=== PATIENT | male | born 1970 | race Caucasian/White ===

== ENCOUNTER 2022-09-07 21:36 | Emergency (ER) | payer SELFPAY ==
--- NOTE | 2022-09-08 01:43 | ED ---
Psych HPI - General Chief Complaint: Psychiatric Symptoms Stated Complaint: Petition Time Seen by Provider: 09/07/22 21:51 Source: police Mode of arrival: ambulatory - History of Present Illness Initial Comments: 52-year-old male presents to the emergency department on a pickup order. Police are at bedside. They state that the patient was petitioned by his father. Reading through the reports, the patient's father reports that he has had psychiatric illness for several years. He used to be on medications however stopped taking them all. They state that he doesn't believe in medications and that "God would heal all". They state that he has abnormal behavior such as co llecting urine in jars. He was kicked out of his detention. He has been living in a hotel which his father's funding. Due to his very poor insight, he was picked up for psychiatric evaluation. He denies any suicidal or homicidal ideations. He denies any drug or alcohol use. No other alleviating, precipitating or modifying factors - Related Data Home Medications Medication Instructions Recorded Confirmed No Known Home Medications 09/08/22 09/08/22 Allergies Allergy/AdvReac Type Severity Reaction Status Date / Time Penicillins Allergy Unknown Verified 09/08/22 12:54 Childhood Review of Systems ROS Statement: Those systems with pertinent positive or pertinent negative responses have been documented in the HPI. ROS Other: All systems not noted in ROS Statement are negative. Past Medical History Past Medical History: No Reported History History of Any Multi-Drug Resistant Organisms: None Reported Past Surgical History: No Surgical Hx Reported Past Psychological History: No Psychological Hx Reported Smoking Status: Never smoker Past Alcohol Use History: None Reported Past Drug Use History: None Reported General Exam Limitations: altered mental status General appearance: alert, anxious Head exam: Present: atraumatic, normocephalic, normal inspection Eye exam: Present: normal appearance, PERRL, EOMI. Absent: scleral icterus, conjunctival injection, periorbital swelling ENT exam: Present: normal exam, mucous membranes moist Neck exam: Present: normal inspection. Absent: tenderness, meningismus, lymphadenopathy Respiratory exam: Present: normal lung sounds bilaterally. Absent: respiratory distress, wheezes, rales, rhonchi, stridor Cardiovascular Exam: Present: normal rhythm, tachycardia, normal heart sounds. Absent: systolic murmur, diastolic murmur, rubs, gallop, clicks GI/Abdominal exam: Present: soft, normal bowel sounds. Absent: distended, tenderness, guarding, rebound, rigid Extremities exam: Present: normal inspection, full ROM, normal capillary refill. Absent: tenderness, pedal edema, joint swelling, calf tenderness Back exam: Present: normal inspection Neurological exam: Present: alert, CN II-XII intact Psychiatric exam: Present: agitated, anxious Skin exam: Present: warm, dry, intact, normal color. Absent: rash Course Vital Signs 09/07/22 09/08/22 09/08/22 21:46 15:47 16:37 Temperature 98 F 98.0 F Pulse Rate 117 H 116 H 109 H Respiratory 20 20 16 Rate Blood Pressure 161/82 113/73 115/67 O2 Sat by Pulse 96 97 98 Oximetry Medical Decision Making - Medical Decision Making Upon arrival patient was placed into room 2. A thorough history and physical exam was performed. Patient is sober at this time. EPS evaluated him. He does require psychiatric admission. Laboratory studies are obtained patient and is currently pending transfer at this time - Lab Data Result diagrams: 09/08/22 02:06 09/08/22 02:06 Lab Results 09/07/22 09/08/22 09/08/22 Range/Units 15:29 02:06 02:06 WBC 13.3 H (3.8-10.6) k/uL RBC 4.62 (4.30-5.90) m/uL Hgb 14.0 (13.0-17.5) gm/dL Hct 40.9 (39.0-53.0) % MCV 88.6 (80.0-100.0) fL MCH 30.3 (25.0-35.0) pg MCHC 34.2 (31.0-37.0) g/dL RDW 12.0 (11.5-15.5) % Plt Count 306 (150-450) k/uL MPV 8.0 Neutrophils % 75 % Lymphocytes % 14 % Monocytes % 5 % Eosinophils % 3 % Basophils % 1 % Neutrophils # 10.0 H (1.3-7.7) k/uL Lymphocytes # 1.8 (1.0-4.8) k/uL Monocytes # 0.7 (0-1.0) k/uL Eosinophils # 0.4 (0-0.7) k/uL Basophils # 0.1 (0-0.2) k/uL Sodium 137 (137-145) mmol/L Potassium 3.9 (3.5-5.1) mmol/L Chloride 104 (98-107) mmol/L Carbon Dioxide 22 (22-30) mmol/L Anion Gap 11 mmol/L BUN 10 (9-20) mg/dL Creatinine 0.81 (0.66-1.25) mg/dL Est GFR (CKD-EPI)AfAm >90 (>60 ml/min/1.73 sqM) Est GFR (CKD-EPI)NonAf >90 (>60 ml/min/1.73 sqM) Glucose 144 H (74-99) mg/dL Calcium 8.3 L (8.4-10.2) mg/dL Total Bilirubin 0.4 (0.2-1.3) mg/dL AST 31 (17-59) U/L ALT 42 (4-49) U/L Alkaline Phosphatase 165 H (38-126) U/L Total Protein 6.8 (6.3-8.2) g/dL Albumin 3.8 (3.5-5.0) g/dL Urine Color Urine Appearance (Clear) Urine pH (5.0-8.0) Ur Specific [place] (1.001-1.035) Urine Protein (Negative) Urine Glucose (UA) (Negative) Urine Ketones (Negative) Urine Blood (Negative) Urine Nitrite (Negative) Urine Bilirubin (Negative) Urine Urobilinogen (<2.0) mg/dL Ur Leukocyte Esterase (Negative) Urine Opiates Screen Not Detected (NotDetected) Ur Oxycodone Screen Not Detected (NotDetected) Urine Methadone Screen Not Detected (NotDetected) Ur Propoxyphene Screen Not Detected (NotDetected) Ur Barbiturates Screen Not Detected (NotDetected) U Tricyclic Antidepress Not Detected (NotDetected) Ur Phencyclidine Scrn Not Detected (NotDetected) Ur Amphetamines Screen Not Detected (NotDetected) U Methamphetamines Scrn Not Detected (NotDetected) U Benzodiazepines Scrn Not Detected (NotDetected) Urine Cocaine Screen Not Detected (NotDetected) U Marijuana (THC) Screen Not Detected (NotDetected) Coronavirus (PCR) (Not Detectd) 09/08/22 09/08/22 Range/Units 02:06 15:29 WBC (3.8-10.6) k/uL RBC (4.30-5.90) m/uL Hgb (13.0-17.5) gm/dL Hct (39.0-53.0) % MCV (80.0-100.0) fL MCH (25.0-35.0) pg MCHC (31.0-37.0) g/dL RDW (11.5-15.5) % Plt Count (150-450) k/uL MPV Neutrophils % % Lymphocytes % % Monocytes % % Eosinophils % % Basophils % % Neutrophils # (1.3-7.7) k/uL Lymphocytes # (1.0-4.8) k/uL Monocytes # (0-1.0) k/uL Eosinophils # (0-0.7) k/uL Basophils # (0-0.2) k/uL Sodium (137-145) mmol/L Potassium (3.5-5.1) mmol/L Chloride (98-107) mmol/L Carbon Dioxide (22-30) mmol/L Anion Gap mmol/L BUN (9-20) mg/dL Creatinine (0.66-1.25) mg/dL Est GFR (CKD-EPI)AfAm (>60 ml/min/1.73 sqM) Est GFR (CKD-EPI)NonAf (>60 ml/min/1.73 sqM) Glucose (74-99) mg/dL Calcium (8.4-10.2) mg/dL Total Bilirubin (0.2-1.3) mg/dL AST (17-59) U/L ALT (4-49) U/L Alkaline Phosphatase (38-126) U/L Total Protein (6.3-8.2) g/dL Albumin (3.5-5.0) g/dL Urine Color Light Yellow Urine Appearance Clear (Clear) Urine pH 7.0 (5.0-8.0) Ur Specific [place] 1.008 (1.001-1.035) Urine Protein Negative (Negative) Urine Glucose (UA) Negative (Negative) Urine Ketones Negative (Negative) Urine Blood Negative (Negative) Urine Nitrite Negative (Negative) Urine Bilirubin Negative (Negative) Urine Urobilinogen <2.0 (<2.0) mg/dL Ur Leukocyte Esterase Negative (Negative) Urine Opiates Screen (NotDetected) Ur Oxycodone Screen (NotDetected) Urine Methadone Screen (NotDetected) Ur Propoxyphene Screen (NotDetected) Ur Barbiturates Screen (NotDetected) U Tricyclic Antidepress (NotDetected) Ur Phencyclidine Scrn (NotDetected) Ur Amphetamines Screen (NotDetected) U Methamphetamines Scrn (NotDetected) U Benzodiazepines Scrn (NotDetected) Urine Cocaine Screen (NotDetected) U Marijuana (THC) Screen (NotDetected) Coronavirus (PCR) Not Detected (Not Detectd) Disposition Clinical Impression: Acute psychosis Disposition: TRANSFER TO PSYCH HOSP/UNIT Condition: Stable Is patient prescribed a controlled substance at d/c from ED?: No Referrals: None,Stated [Primary Care Provider] - 1-2 days - Out of Hospital Transfer - Req. Specs Out of Hospital Transfer - Requested Specifics: Psychiatric Non-ICU ([facility]
[2022-09-08 02:25] LABS: Basophils # (A) 0.1 k/uL (0-0.2); Basophils % (A) 1 %; Eosinophils # (A) 0.4 k/uL (0-0.7); Eosinophils % (A) 3 %; HCT 40.9 % (39.0-53.0); Lymphocytes # (A) 1.8 k/uL (1.0-4.8); Lymphocytes % (A) 14 %; MCH 30.3 pg (25.0-35.0); MCHC 34.2 g/dL (31.0-37.0); MCV 88.6 fL (80.0-100.0); Monocytes # (A) 0.7 k/uL (0-1.0); Monocytes % (A) 5 %; Neutrophils % (A) 75 %; Platelet Count 306 k/uL (150-450); RBC 4.62 m/uL (4.30-5.90); WBC 13.3 k/uL (3.8-10.6)
[2022-09-08 02:37] LABS: ALT 42 U/L (4-49); AST 31 U/L (17-59); African American GFR (CKD) >90 (>60 ml/min/1.73 sqM); Albumin 3.8 g/dL (3.5-5.0); Alkaline Phosphatase 165 U/L (38-126); Anion Gap 11 mmol/L; Blood Urea Nitrogen 10 mg/dL (9-20); Calcium 8.3 mg/dL (8.4-10.2); Carbon Dioxide 22 mmol/L (22-30); Chloride 104 mmol/L (98-107); Glucose 144 mg/dL (74-99); Non-African American GFR(CKD) >90 (>60 ml/min/1.73 sqM); Potassium 3.9 mmol/L (3.5-5.1); Sodium 137 mmol/L (137-145); Total Bilirubin 0.4 mg/dL (0.2-1.3); Total Protein 6.8 g/dL (6.3-8.2)
[2022-09-08] MEDS ORDERED: LORazepam 2 MG/ML INJ IM STA (15:22)
[2022-09-08] MEDS ORDERED: HALOPERIDOL LACTATE 5 MG/ML 1 ML VIAL IM STA (15:22)
[2022-09-08 15:41] LABS: Appearance,Urine Clear (Clear); Bilirubin,Urine Negative (Negative); Blood,Urine Negative (Negative); Color,Urine Light Yellow; Glucose,Urine (UA) Negative (Negative); Ketones,Urine Negative (Negative); Leukocyte Esterase,Urine Negative (Negative); Nitrite,Urine Negative (Negative); Protein,Urine Negative (Negative); Specific Gravity,Urine 1.008 (1.001-1.035); Urobilinogen,Urine <2.0 mg/dL (<2.0)
[2022-09-08 16:02] LABS: Amphetamine Screen,Urine Not Detected (NotDetected); Barbiturate Screen,Urine Not Detected (NotDetected); Benzodiazepines Screen,Urine Not Detected (NotDetected); Cocaine Screen,Urine Not Detected (NotDetected); Methadone Screen, Urine Not Detected (NotDetected); Opiate Screen,Urine Not Detected (NotDetected); Oxycodone Screen, Urine Not Detected (NotDetected); Phencyclidine Screen,Urine Not Detected (NotDetected); Tricyclic Antidepressant,Urine Not Detected (NotDetected); Urn Cannabinoid Scrn Not Detected (NotDetected)
[2022-09-08 16:39] VITALS: BP 115/67; PULSE 109; RESP 16; TEMP 98
== END 2022-09-08 16:52 ==
LOC: EC 21:36
DX: F29 Unspecified psychosis not due to a substance or known physiological condition (principal); Z88.0 Allergy status to penicillin
CPT/HCPCS: 82075; 36415; 80053; 85025; 81003; 80306; 87635; 99285; 96372 ×2; J2060; J1630

== ENCOUNTER 2023-05-21 14:44 | Emergency (ER) | payer MEDICARE, OTHER ==
[2023-05-21 15:03] VITALS: TEMP 98.9
[2023-05-21 15:53] LABS: Basophils % (A) 0 %; Eosinophils # (A) 0.1 k/uL (0-0.7); Eosinophils % (A) 1 %; HCT 42.2 % (39.0-53.0); HGB 14.4 gm/dL (13.0-17.5); Lymphocytes # (A) 1.4 k/uL (1.0-4.8); Lymphocytes % (A) 17 %; MCH 30.1 pg (25.0-35.0); MCHC 34.2 g/dL (31.0-37.0); MCV 88.2 fL (80.0-100.0); Mean Platelet Volume 7.8; Monocytes # (A) 0.5 k/uL (0-1.0); Monocytes % (A) 6 %; Neutrophils # (A) 5.9 k/uL (1.3-7.7); Neutrophils % (A) 73 %; Platelet Count 209 k/uL (150-450); RBC 4.78 m/uL (4.30-5.90); RDW 12.2 % (11.5-15.5); WBC 8.2 k/uL (3.8-10.6)
[2023-05-21 15:59] LABS: ALT 38 U/L (4-49); AST 31 U/L (17-59); African American GFR (CKD) >90 (>60 ml/min/1.73 sqM); Albumin 4.1 g/dL (3.5-5.0); Alkaline Phosphatase 106 U/L (38-126); Amylase 62 U/L (30-110); Anion Gap 14 mmol/L; Blood Urea Nitrogen 6 mg/dL (9-20); Calcium 8.9 mg/dL (8.4-10.2); Carbon Dioxide 20 mmol/L (22-30); Chloride 101 mmol/L (98-107); Glucose 127 mg/dL (74-99); Lipase 49 U/L (23-300); Non-African American GFR(CKD) >90 (>60 ml/min/1.73 sqM); Potassium 3.9 mmol/L (3.5-5.1); Sodium 135 mmol/L (137-145); Total Bilirubin 0.3 mg/dL (0.2-1.3); Total Protein 7.1 g/dL (6.3-8.2)
[2023-05-21] MEDS ORDERED: PANTOPRAZOLE 40 MG/10 ML VIAL IVP STA (17:30)
[2023-05-21] MEDS ORDERED: SODIUM CHLORIDE 0.9% 1,000 ML IV ONE (17:30)
[2023-05-21 17:38] LABS: Appearance,Urine Clear (Clear); Bilirubin,Urine Negative (Negative); Blood,Urine Negative (Negative); Glucose,Urine (UA) Negative (Negative); Ketones,Urine Negative (Negative); Leukocyte Esterase,Urine Negative (Negative); Nitrite,Urine Negative (Negative); PH, Urine 7.5 (5.0-8.0); Protein,Urine Negative (Negative); Specific Gravity,Urine 1.003 (1.001-1.035); Urobilinogen,Urine <2.0 mg/dL (<2.0)
[2023-05-21 17:47] LABS: Color,Urine Light Yellow
--- NOTE | 2023-05-21 17:56 | ED ---
General Adult HPI - General Chief complaint: Nausea/Vomiting/Diarrhea Stated complaint: vomiting Time Seen by Provider: 05/21/23 16:53 Source: patient, RN notes reviewed Mode of arrival: ambulatory Limitations: no limitations - History of Present Illness Initial comments: 53-year-old male presents emergency Department with chief complaint of vomiting 4 weeks. He states that he is unaware of any triggers. He reports that he is having normal bowel movements daily although he admits to occasional diarrhea. Denies aggravating or alleviating factors. He denies any fever, chills. Denies any abdominal pain. Denies tobacco use, alcohol, illicit drug use. He does not currently have a primary care provider. - Related Data Home Medications Medication Instructions Recorded Confirmed No Known Home Medications 09/08/22 09/08/22 Allergies Allergy/AdvReac Type Severity Reaction Status Date / Time Penicillins Allergy Unknown Verified 05/21/23 15:03 Childhood Review of Systems ROS Statement: Those systems with pertinent positive or pertinent negative responses have been documented in the HPI. ROS Other: All systems not noted in ROS Statement are negative. Past Medical History Past Medical History: No Reported History History of Any Multi-Drug Resistant Organisms: None Reported Past Surgical History: No Surgical Hx Reported Past Psychological History: No Psychological Hx Reported Smoking Status: Never smoker Past Alcohol Use History: None Reported Past Drug Use History: None Reported General Exam Limitations: no limitations General appearance: alert, in no apparent distress Head exam: Present: atraumatic, normocephalic, normal inspection Eye exam: Present: normal appearance, PERRL, EOMI. Absent: scleral icterus, conjunctival injection, periorbital swelling ENT exam: Present: normal exam, mucous membranes moist Neck exam: Present: normal inspection. Absent: tenderness, meningismus, lymphadenopathy Respiratory exam: Present: normal lung sounds bilaterally. Absent: respiratory distress, wheezes, rales, rhonchi, stridor Cardiovascular Exam: Present: regular rate, normal rhythm, normal heart sounds. Absent: systolic murmur, diastolic murmur, rubs, gallop, clicks GI/Abdominal exam: Present: soft, normal bowel sounds. Absent: distended, tenderness, guarding, rebound, rigid Extremities exam: Present: normal inspection, full ROM, normal capillary refill. Absent: tenderness, pedal edema, joint swelling, calf tenderness Back exam: Present: normal inspection Neurological exam: Present: alert, oriented X3 Psychiatric exam: Present: normal affect, normal mood Skin exam: Present: warm, dry, intact, normal color. Absent: rash Course Vital Signs 05/21/23 05/21/23 14:59 19:25 Temperature 98.9 F Pulse Rate 93 86 Respiratory 20 16 Rate Blood Pressure 144/81 120/78 O2 Sat by Pulse 95 97 Oximetry Medical Decision Making - Medical Decision Making Was pt. sent in by a medical professional or institution (, [facility], [facility], urgent care, hospital, or group home...) When possible be specific @ -No Did you speak to anyone other than the patient for history (EMS, parent, family, police, friend...)? What history was obtained from this source @ -No Did you review nursing and triage notes (agree or disagree)? Why? @ -I reviewed and agree with nursing and triage notes Were old charts reviewed (outside hosp., previous admission, EMS record, old EKG, old radiological studies, urgent care reports/EKG's, group home records)? Report findings @ -No old charts were reviewed Differential Diagnosis (chest pain, altered mental status, abdominal pain women, abdominal pain men, vaginal bleeding, weakness, fever, dyspnea, syncope, headach e, dizziness, GI bleed, back pain, seizure, CVA, palpatations, mental health, musculoskeletal)? @ -Gastroenteritis, gastritis, ulcer, this list is not all inclusive EKG interpreted by me (3pts min.). @ -none X-rays interpreted by me (1pt min.). @ -None done CT interpreted by me (1pt min.). @ -None done U/S interpreted by me (1pt. min.). @ -None done What testing was considered but not performed or refused? (CT, X-rays, U/S, labs)? Why? @ -None What meds were considered but not given or refused? Why? @ -None Did you discuss the management of the patient with other professionals (professionals i.e. [facility], [facility], lab, RT, psych nurse, social research assistant, roll machine operator, teacher, chief school finance officer, cyanide case hardener)? Give summary @ -No Was smoking cessation discussed for >3mins.? @ -No Was critical care preformed (if so, how long)? @ -No Were there social determinants of health that impacted care today? How? (Homelessness, low income, unemployed, alcoholism, drug addiction, transportation, low edu. Level, literacy, decrease access to med. care, nursing home, rehab)? @ -No Was there de-escalation of care discussed even if they declined (Discuss DNR or withdrawal of care, Hospice)? DNR status @ -No What co-morbidities impacted this encounter? (DM, HTN, Smoking, COPD, CAD, Cancer, CVA, ARF, Chemo, Hep., AIDS, mental health diagnosis, sleep apnea, morbid obesity)? @ -None Was patient admitted / discharged? Hospital course, mention meds given and route, prescriptions, significant lab abnormalities, going to OR and other pertinent info. @ -discharged. Patient presented to the department with chief complaint of nausea and vomiting 4 weeks. He admits to normal daily bowel movements and occasional diarrhea. He states that he does not currently have a primary care provider. He has a history of psychiatric illness but no other medical problems that he is aware of. Patient was given IV fluids and Protonix. He did not have any episodes of vomiting while in the emergency department. He is not having any abdominal pain. On examination abdomen is soft, nontender, nondistended. CBC within normal limits, CMP showed sodium 135, potassium 3.9, normal amylase and lipase; UA shows no evidence of urinary tract infection or dehydration Patient was given Zofran for home nausea and vomiting. Patient advised of these findings and given a list of area primary care providers to follow up with. Patient stable at time of discharge. Case discussed with my attending, Dr. Ca Undiagnosed new problem with uncertain prognosis? @ -No Drug Therapy requiring intensive monitoring for toxicity (Heparin, Nitro, Insulin, Cardizem)? @ -No Were any procedures done? @ -No Diagnosis/symptom? @ -Nausea and vomiting Acute, or Chronic, or Acute on Chronic? @ -Acute Uncomplicated (without systemic symptoms) or Complicated (systemic symptoms)? @ -Uncomplicated Side effects of treatment? @ -No Exacerbation, Progression, or Severe Exacerbation? @ -No Poses a threat to life or bodily function? How? (Chest pain, USA, PA, pneumonia, PE, COPD, DKA, ARF, appy, cholecystitis, CVA, Diverticulitis, Homicidal, Suicidal, threat to staff... and all critical care pts) @ -No - Lab Data Result diagrams: 05/21/23 15:30 05/21/23 15:30 Lab Results 05/21/23 05/21/23 05/21/23 Range/Units 15:30 15:30 17:17 WBC 8.2 (3.8-10.6) k/uL RBC 4.78 (4.30-5.90) m/uL Hgb 14.4 (13.0-17.5) gm/dL Hct 42.2 (39.0-53.0) % MCV 88.2 (80.0-100.0) fL MCH 30.1 (25.0-35.0) pg MCHC 34.2 (31.0-37.0) g/dL RDW 12.2 (11.5-15.5) % Plt Count 209 (150-450) k/uL MPV 7.8 Neutrophils % 73 % Lymphocytes % 17 % Monocytes % 6 % Eosinophils % 1 % Basophils % 0 % Neutrophils # 5.9 (1.3-7.7) k/uL Lymphocytes # 1.4 (1.0-4.8) k/uL Monocytes # 0.5 (0-1.0) k/uL Eosinophils # 0.1 (0-0.7) k/uL Basophils # 0.0 (0-0.2) k/uL Sodium 135 L (137-145) mmol/L Potassium 3.9 (3.5-5.1) mmol/L Chloride 101 (98-107) mmol/L Carbon Dioxide 20 L (22-30) mmol/L Anion Gap 14 mmol/L BUN 6 L (9-20) mg/dL Creatinine 0.75 (0.66-1.25) mg/dL Est GFR (CKD-EPI)AfAm >90 (>60 ml/min/1.73 sqM) Est GFR (CKD-EPI)NonAf >90 (>60 ml/min/1.73 sqM) Glucose 127 H (74-99) mg/dL Calcium 8.9 (8.4-10.2) mg/dL Total Bilirubin 0.3 (0.2-1.3) mg/dL AST 31 (17-59) U/L ALT 38 (4-49) U/L Alkaline Phosphatase 106 (38-126) U/L Total Protein 7.1 (6.3-8.2) g/dL Albumin 4.1 (3.5-5.0) g/dL Amylase 62 (30-110) U/L Lipase 49 (23-300) U/L Urine Color Light Yellow Urine Appearance Clear (Clear) Urine pH 7.5 (5.0-8.0) Ur Specific [place] 1.003 (1.001-1.035) Urine Protein Negative (Negative) Urine Glucose (UA) Negative (Negative) Urine Ketones Negative (Negative) Urine Blood Negative (Negative) Urine Nitrite Negative (Negative) Urine Bilirubin Negative (Negative) Urine Urobilinogen <2.0 (<2.0) mg/dL Ur Leukocyte Esterase Negative (Negative) Disposition Clinical Impression: Nausea and vomiting Disposition: HOME SELF-CARE Condition: Stable Instructions (If sedation given, give patient instructions): Acute Nausea and Vomiting (ED) Additional Instructions: Follow up with an area primary care provider. Return to the emergency department for new or worsening symptoms. Is patient prescribed a controlled substance at d/c from ED?: No Referrals: None,Stated [Primary Care Provider] - 1-2 days Forms: Area PCPs
[2023-05-21] MEDS ORDERED: ONDANSETRON 4 MG ODT STARTER PACK 2 TAB BTL PO STA (18:07)
[2023-05-21 19:26] VITALS: BP 120/78; PULSE 86; RESP 16
== END 2023-05-21 19:27 | disposition home or self-care (01) ==
LOC: EC 14:44
DX: R11.2 Nausea with vomiting, unspecified (principal); Z88.0 Allergy status to penicillin
CPT/HCPCS: 36415; 80053; 82150; 83690; 85025; 81003; 99284; 96374; 96361; S0119; C9113

== ENCOUNTER 2024-09-19 19:23 | Emergency (ER) | payer MEDICARE, OTHER ==
[2024-09-19 20:15] LABS: Basophils # (A) 0.1 k/uL (0-0.2); Basophils % (A) 0 %; Eosinophils # (A) 0.2 k/uL (0-0.7); Eosinophils % (A) 1 %; HCT 45.3 % (39.0-53.0); HGB 15.2 gm/dL (13.0-17.5); Lymphocytes # (A) 2.3 k/uL (1.0-4.8); Lymphocytes % (A) 18 %; MCH 29.8 pg (25.0-35.0); MCHC 33.6 g/dL (31.0-37.0); MCV 88.7 fL (80.0-100.0); Mean Platelet Volume 8.5; Monocytes # (A) 0.8 k/uL (0-1.0); Monocytes % (A) 6 %; Neutrophils % (A) 71 %; Platelet Count 303 k/uL (150-450); RDW 12.9 % (11.5-15.5); WBC 12.7 k/uL (3.8-10.6)
[2024-09-19 20:27] LABS: ALT 35 U/L (4-49); AST 34 U/L (17-59); African American GFR (CKD) >90 (>60 ml/min/1.73 sqM); Albumin 4.5 g/dL (3.5-5.0); Alkaline Phosphatase 150 U/L (38-126); Anion Gap 12 mmol/L; Blood Urea Nitrogen 14 mg/dL (9-20); Carbon Dioxide 16 mmol/L (22-30); Chloride 107 mmol/L (98-107); Glucose 122 mg/dL (74-99); Non-African American GFR(CKD) >90 (>60 ml/min/1.73 sqM); Potassium 3.9 mmol/L (3.5-5.1); Sodium 135 mmol/L (137-145); Total Protein 7.3 g/dL (6.3-8.2)
--- NOTE | 2024-09-19 20:39 | ED ---
General Adult HPI - General Source: patient, police, RN notes reviewed, old records reviewed Mode of arrival: ambulatory Limitations: no limitations <Sundar Benitez - Last Filed: 09/19/24 20:39> <Phoenix Ca - Last Filed: 09/20/24 02:12> - General Chief complaint: Psychiatric Symptoms Stated complaint: PETITION Time Seen by Provider: 09/19/24 19:30 - History of Present Illness Initial comments: Patient is a 54-year-old male who presents as a court order pickup from police. Patient was petitioned by his father. Petition states "grandiose delusionshe thinks his mother is even though he sees here. Believes he came into a large sum of money. He flip to other side." Patient denies any symptoms. Denies suicidal homicidal ideations, times complaints. Denies any hallucinations. Presents for further evaluation at this time. He is cooperative. (Sundar Benitez) - Related Data Home Medications Medication Instructions Recorded Confirmed No Known Home Medications 09/08/22 09/08/22 Allergies Allergy/AdvReac Type Severity Reaction Status Date / Time Penicillins Allergy Unknown Verified 09/19/24 19:28 Childhood Review of Systems ROS Other: All systems not noted in ROS Statement are negative. <Sundar Benitez - Last Filed: 09/19/24 20:39> ROS Other: All systems not noted in ROS Statement are negative. <Phoenix Ca - Last Filed: 09/20/24 02:12> ROS Statement: Those systems with pertinent positive or pertinent negative responses have been documented in the HPI. Review of Systems: CONST: Denies fever EYES: Denies blurry vision ENT: Denies nasal congestion C/V: Denies Chest pain RESP: Denies shortness of breath GI: Denies abdominal pain : Denies dysuria SKIN: Denies rash. MSK: Denies joint pain. NEURO: Denies headache (Sundar Benitez) Past Medical History Past Medical History: No Reported History History of Any Multi-Drug Resistant Organisms: None Reported Past Surgical History: No Surgical Hx Reported Past Psychological History: No Psychological Hx Reported Smoking Status: Never smoker Past Alcohol Use History: None Reported Past Drug Use History: None Reported <Sundar Benitez - Last Filed: 09/19/24 20:39> General Exam Limitations: no limitations <EmmanuelSundar - Last Filed: 09/19/24 20:39> - General Exam Comments Initial Comments: General: Appears in no acute distress. HEAD: Normal with no signs of head trauma. EYES: EOMI. ENT: Hearing grossly intact. RESPIRATORY: No respiratory distress. Clear breath sounds bilaterally. C/V: Regular rate and rhythm. S1 and S2 auscultated. ABD: Abdomen is nondistended. EXT: No obvious deformity. SKIN: No rashes or lesions observed on exposed skin. NEURO: Alert and oriented x 4 (Sundar Benitez) Course Vital Signs 09/19/24 19:26 Temperature 97.7 F Pulse Rate 58 L Respiratory 20 Rate Blood Pressure 137/76 O2 Sat by Pulse 96 Oximetry Medical Decision Making - Lab Data Result diagrams: 09/19/24 19:53 09/19/24 19:53 - EKG Data -: EKG Interpreted by Me <Sundar Benitez - Last Filed: 09/19/24 20:39> - Lab Data Result diagrams: 09/19/24 19:53 09/19/24 19:53 <Phoenix Ca - Last Filed: 09/20/24 02:12> - Medical Decision Making Was pt. sent in by a medical professional or institution (LISANDRA Camp, FIELD STAFF MANAGER, urgent care, hospital, or [facility]...) When possible be specific @ -Patient petitioned and brought in by police for court order pickup. Did you speak to anyone other than the patient for history (EMS, parent, family, police, friend...)? What history was obtained from this source @ -No Did you review nursing and triage notes (agree or disagree)? Why? @ -I reviewed and agree with nursing and triage notes Were old charts reviewed (outside hosp., previous admission, EMS record, old EKG, old radiological studies, urgent care reports/EKG's, [facility] records)? Report findings @ -Reviewed the petition completed by patient's father, outlining patient's delusions. Differential Diagnosis (chest pain, altered mental status, abdominal pain women, abdominal pain men, vaginal bleeding, weakness, fever, dyspnea, syncope, headache, dizziness, GI bleed, back pain, seizure, CVA, palpatations, mental health, musculoskeletal)? @ -Differential Mental Health Depression, anxiety, bipolar, psychosis, schizophrenia, borderline personality, situational depression, adjustment disorder, behavioral disorder, brain tumor, malingering, substance abuse, encephalopathy, medication reaction, dementia, hypothyroidism, degenerative neurologic disorder, lupus.... This is not meant to be all-inclusive list EKG interpreted by me (3pts min.). @ -As above X-rays interpreted by me (1pt min.). @ -None done CT interpreted by me (1pt min.). @ -None done U/S interpreted by me (1pt. min.). @ -None done What testing was considered but not performed or refused? (CT, X-rays, U/S, labs)? Why? @ -None What meds were considered but not given or refused? Why? @ -None Did you discuss the management of the patient with other professionals (professionals i.e. , PA, FIELD STAFF MANAGER, lab, RT, psych nurse, adoption social worker, mens locker room attendant, teacher, gunnery/ordnance officer, telehealth case manager)? Give summary @ -No Was smoking cessation discussed for >3mins.? @ -No Was critical care preformed (if so, how long)? @ -No Were there social determinants of health that impacted care today? How? (Homelessness, low income, unemployed, alcoholism, drug addiction, transportation, low edu. Level, literacy, decrease access to med. care, care home, rehab)? @ -No Was there de-escalation of care discussed even if they declined (Discuss DNR or withdrawal of care, Hospice)? DNR status @ -No What co-morbidities impacted this encounter? (DM, HTN, Smoking, COPD, CAD, Cancer, CVA, ARF, Chemo, Hep., AIDS, mental health diagnosis, sleep apnea, morbid obesity)? @ -Mental health history Was patient admitted / discharged? Hospital course, mention meds given and route, prescriptions, significant lab abnormalities, going to OR and other pertinent info. @ -Patient presents emergency department for psychiatric evaluation. Was petitioned and had a court order pickup. Sitter ordered. Patient is franki ative. Due to his age we will obtain basic labs as well as a screen EKG. He was in agreement this plan. BAT is 0. Laboratory studies are all within acceptable limits. EKG shows no signs of acute ischemia. At this time, patient is medically cleared for evaluation by psychiatry. Disposition is pending psychiatric evaluation. EPS notified of consult. Undiagnosed new problem with uncertain prognosis? @ -No Drug Therapy requiring intensive monitoring for toxicity (Heparin, Nitro, Insulin, Cardizem)? @ -No Were any procedures done? @ -No (Sundar Benitez) - Lab Data Lab Results 09/19/24 09/19/24 09/19/24 Range/Units 19:53 19:53 21:10 WBC 12.7 H (3.8-10.6) k/uL RBC 5.10 (4.30-5.90) m/uL Hgb 15.2 (13.0-17.5) gm/dL Hct 45.3 (39.0-53.0) % MCV 88.7 (80.0-100.0) fL MCH 29.8 (25.0-35.0) pg MCHC 33.6 (31.0-37.0) g/dL RDW 12.9 (11.5-15.5) % Plt Count 303 (150-450) k/uL MPV 8.5 Neutrophils % 71 % Lymphocytes % 18 % Monocytes % 6 % Eosinophils % 1 % Basophils % 0 % Neutrophils # 9.0 H (1.3-7.7) k/uL Lymphocytes # 2.3 (1.0-4.8) k/uL Monocytes # 0.8 (0-1.0) k/uL Eosinophils # 0.2 (0-0.7) k/uL Basophils # 0.1 (0-0.2) k/uL Sodium 135 L (137-145) mmol/L Potassium 3.9 (3.5-5.1) mmol/L Chloride 107 (98-107) mmol/L Carbon Dioxide 16 L (22-30) mmol/L Anion Gap 12 mmol/L BUN 14 (9-20) mg/dL Creatinine 0.81 (0.66-1.25) mg/dL Est GFR (CKD-EPI)AfAm >90 (>60 ml/min/1.73 sqM) Est GFR (CKD-EPI)NonAf >90 (>60 ml/min/1.73 sqM) Glucose 122 H (74-99) mg/dL Calcium 9.0 (8.4-10.2) mg/dL Total Bilirubin 1.0 (0.2-1.3) mg/dL AST 34 (17-59) U/L ALT 35 (4-49) U/L Alkaline Phosphatase 150 H (38-126) U/L Total Protein 7.3 (6.3-8.2) g/dL Albumin 4.5 (3.5-5.0) g/dL Urine Color Urine Appearance (Clear) Urine pH (5.0-8.0) Ur Specific [place] (1.001-1.035) Urine Protein (Negative) Urine Glucose (UA) (Negative) Urine Ketones (Negative) Urine Blood (Negative) Urine Nitrite (Negative) Urine Bilirubin (Negative) Urine Urobilinogen (<2.0) mg/dL Ur Leukocyte Esterase (Negative) Urine Opiates Screen Not Detected (NotDetected) Ur Oxycodone Screen Not Detected (NotDetected) Urine Methadone Screen Not Detected (NotDetected) Ur Barbiturates Screen Not Detected (NotDetected) U Tricyclic Antidepress Not Detected (NotDetected) Ur Phencyclidine Scrn Not Detected (NotDetected) Ur Amphetamines Screen Not Detected (NotDetected) U Methamphetamines Scrn Not Detected (NotDetected) U Benzodiazepines Scrn Not Detected (NotDetected) Urine Cocaine Screen Not Detected (NotDetected) U Marijuana (THC) Screen Not Detected (NotDetected) SARS-CoV-2 (PCR) (Not Detectd) 09/19/24 09/19/24 Range/Units 21:10 23:44 WBC (3.8-10.6) k/uL RBC (4.30-5.90) m/uL Hgb (13.0-17.5) gm/dL Hct (39.0-53.0) % MCV (80.0-100.0) fL MCH (25.0-35.0) pg MCHC (31.0-37.0) g/dL RDW (11.5-15.5) % Plt Count (150-450) k/uL MPV Neutrophils % % Lymphocytes % % Monocytes % % Eosinophils % % Basophils % % Neutrophils # (1.3-7.7) k/uL Lymphocytes # (1.0-4.8) k/uL Monocytes # (0-1.0) k/uL Eosinophils # (0-0.7) k/uL Basophils # (0-0.2) k/uL Sodium (137-145) mmol/L Potassium (3.5-5.1) mmol/L Chloride (98-107) mmol/L Carbon Dioxide (22-30) mmol/L Anion Gap mmol/L BUN (9-20) mg/dL Creatinine (0.66-1.25) mg/dL Est GFR (CKD-EPI)AfAm (>60 ml/min/1.73 sqM) Est GFR (CKD-EPI)NonAf (>60 ml/min/1.73 sqM) Glucose (74-99) mg/dL Calcium (8.4-10.2) mg/dL Total Bilirubin (0.2-1.3) mg/dL AST (17-59) U/L ALT (4-49) U/L Alkaline Phosphatase (38-126) U/L Total Protein (6.3-8.2) g/dL Albumin (3.5-5.0) g/dL Urine Color Light Yellow Urine Appearance Clear (Clear) Urine pH 6.5 (5.0-8.0) Ur Specific [place] 1.015 (1.001-1.035) Urine Protein Negative (Negative) Urine Glucose (UA) Negative (Negative) Urine Ketones 2+ H (Negative) Urine Blood Negative (Negative) Urine Nitrite Negative (Negative) Urine Bilirubin Negative (Negative) Urine Urobilinogen <2.0 (<2.0) mg/dL Ur Leukocyte Esterase Negative (Negative) Urine Opiates Screen (NotDetected) Ur Oxycodone Screen (NotDetected) Urine Methadone Screen (NotDetected) Ur Barbiturates Screen (NotDetected) U Tricyclic Antidepress (NotDetected) Ur Phencyclidine Scrn (NotDetected) Ur Amphetamines Screen (NotDetected) U Methamphetamines Scrn (NotDetected) U Benzodiazepines Scrn (NotDetected) Urine Cocaine Screen (NotDetected) U Marijuana (THC) Screen (NotDetected) SARS-CoV-2 (PCR) Not Detected (Not Detectd) - EKG Data EKG Comments: 12-lead Electrocardiogram Interpretation Note EKG was reviewed and interpreted by myself. 12-lead ECG performed at 2010 is interpreted by me as revealing normal sinus rhythm at a rate of 89 beats per min toyin. [place] is normal. LA interval is 128 ms, QRS duration is 94 ms, QTc is 403 ms.. There were no ST or T wave abnormalities to suggest myocardial ischemia or injury. R wave progression across the precordium was satisfactory. By my interpretation this EKG is non-diagnostic for acute ischemia. (Sundar Benitez) Disposition <Sundar Benitez - Last Filed: 09/19/24 20:39> Is patient prescribed a controlled substance at d/c from ED?: No <Phoenix Ca - Last Filed: 09/20/24 02:12> Clinical Impression: Acute psychosis, Psychosis Disposition: TRANSFER TO PSYCH HOSP/UNIT Condition: Fair Referrals: None,Stated [Primary Care Provider] - 1-2 days
[2024-09-19 21:49] LABS: Amphetamine Screen,Urine Not Detected (NotDetected); Barbiturate Screen,Urine Not Detected (NotDetected); Benzodiazepines Screen,Urine Not Detected (NotDetected); Cocaine Screen,Urine Not Detected (NotDetected); Methadone Screen, Urine Not Detected (NotDetected); Opiate Screen,Urine Not Detected (NotDetected); Oxycodone Screen, Urine Not Detected (NotDetected); Phencyclidine Screen,Urine Not Detected (NotDetected); Tricyclic Antidepressant,Urine Not Detected (NotDetected); Urn Cannabinoid Scrn Not Detected (NotDetected)
[2024-09-19 23:48] LABS: Appearance,Urine Clear (Clear); Bilirubin,Urine Negative (Negative); Blood,Urine Negative (Negative); Color,Urine Light Yellow; Glucose,Urine (UA) Negative (Negative); Ketones,Urine 2+ (Negative); Leukocyte Esterase,Urine Negative (Negative); Nitrite,Urine Negative (Negative); PH, Urine 6.5 (5.0-8.0); Protein,Urine Negative (Negative); Specific Gravity,Urine 1.015 (1.001-1.035); Urobilinogen,Urine <2.0 mg/dL (<2.0)
[2024-09-20 12:32] VITALS: BP 119/58; PULSE 65; RESP 16; TEMP 97.6
== END 2024-09-20 21:13 ==
LOC: EC 19:23
DX: F23 Brief psychotic disorder (principal); Z88.0 Allergy status to penicillin; Z11.52 Encounter for screening for COVID-19
CPT/HCPCS: 36415; 80053; 80306; 81003; 82075; 85025; 87635; 93005; 99285

== ENCOUNTER 2024-11-22 09:11 | Inpatient (IN) | payer MEDICARE, MEDICAID ==
--- NOTE | 2024-11-22 09:45 | ED ---
General Adult HPI - General Chief complaint: Psychiatric Symptoms Stated complaint: Petition Time Seen by Provider: 11/22/24 09:21 Source: patient, police Mode of arrival: ambulatory - History of Present Illness Initial comments: Dictation was produced using [employer] dictation software. please excuse any grammatical, word or spelling errors. Chief Complaint: 54-year-old male presents to the emergency department for psychiatric evaluation History of Present Illness: Patient is 54-year-old male brought to the emergency department for psychiatric evaluation. Blunt force was called on patient's behalf because he has not been trying to up to his psychiatric appointments. Patient denies any complaints at this time. Denies any suicidal homicidal ideation. He denies any visual auditory hallucinations. Patient denies any paranoia. The ROS documented in this emergency department record has been reviewed and confirmed by me. Those systems with pertinent positive or negative responses have been documented in the HPI. All other systems are other negative and/or noncontributory. - Related Data Home Medications Medication Instructions Recorded Confirmed No Known Home Medications 09/08/22 09/20/24 Allergies Allergy/AdvReac Type Severity Reaction Status Date / Time Penicillins Allergy Unknown Verified 11/22/24 09:19 Childhood Review of Systems ROS Statement: Those systems with pertinent positive or pertinent negative responses have been documented in the HPI. ROS Other: All systems not noted in ROS Statement are negative. Past Medical History Past Medical History: No Reported History History of Any Multi-Drug Resistant Organisms: None Reported Past Surgical History: Tonsillectomy Past Psychological History: No Psychological Hx Reported, Schizoaffective Disorder Smoking Status: Never smoker Past Alcohol Use History: None Reported Past Drug Use History: None Reported General Exam - General Exam Comments Initial Comments: General: Well-appearing, nontoxic, no acute distress. Head: Normocephalic, atraumatic Eyes: PERRLA, EOMI ENT: Airway patent Chest: Nonlabored breathing Skin: No visual rash, normal skin tone Neuro: Alert and oriented 3 Musculoskeletal: No gross abnormalities Course Vital Signs 11/22/24 11/22/24 11/22/24 09:13 09:19 11:19 Temperature 97.8 F Pulse Rate 126 H 118 H 95 Respiratory 28 H 20 24 Rate Blood Pressure 138/74 112/60 140/89 O2 Sat by Pulse 100 98 98 Oximetry Medical Decision Making - Medical Decision Making Was pt. sent in by a medical professional or institution (, PA, PHARMACY SALES ASSISTANT, urgent care, hospital, or [place] [facility]...) When possible be specific @ -No Did you speak to anyone other than the patient for history (EMS, parent, family, police, friend...)? What history was obtained from this source @ -No Did you review nursing and triage notes (agree or disagree)? Why? @ -I reviewed and agree with nursing and triage notes Were old charts reviewed (outside hosp., previous admission, EMS record, old EKG, old radiological studies, urgent care reports/EKG's, [place] [facility] records)? Report findings @ -No old charts were reviewed Differential Diagnosis (chest pain, altered mental status, abdominal pain women, abdominal pain men, vaginal bleeding, musculoskeletal, weakness, fever, dyspnea, syncope, headache, dizziness, GI bleed, back pain, seizure, CVA, palpatations, mental health)? @ -Differential Mental Health: Depression, anxiety, bipolar, psychosis, schizophrenia, borderline personality, situational depression, adjustment disorder, behavioral disorder, brain tumor, malingering, substance abuse, encephalopathy, medication reaction, dementia, hypothyroidism, degenerative neurologic disorder, lupus.... This is not meant to be all-inclusive list EKG interpreted by me (3pts min.). @ -None done X-rays interpreted by me (1pt min.). @ -None done CT interpreted by me (1pt min.). @ -None done U/S interpreted by me (1pt. min.). @ -None done What testing was considered but not performed or refused? (CT, X-rays, U/S, labs)? Why? @ -None What meds were considered but not given or refused? Why? @ -None Was smoking cessation discussed for >3mins.? @ -No Were there social determinants of health that impacted care today? How? (Homelessness, low income, unemployed, alcoholism, drug addiction, transportation, low edu. Level, literacy, decrease access to med. care, [facility], rehab)? @ -No Was there de-escalation of care discussed even if they declined (Discuss DNR or withdrawal of care, Hospice)? DNR status @ -No What co-morbidities impacted this encounter? (DM, HTN, Smoking, COPD, CAD, Cancer, CVA, ARF, Chemo, Hep., AIDS, mental health diagnosis, sleep apnea, morbid obesity)? @ -History of schizophrenia Was patient admitted / discharged? Hospital course, mention meds given and route, prescriptions, significant lab abnormalities, going to OR and other pertinent info. @ -54-year-old male presents emergency department for psychiatric evaluation due to noncompliance with psychiatric care. Vital signs stable. Physical examination is benign. Patient medically cleared for EPS evaluation Did you discuss the management of the patient with other professionals (professionals i.e. , PA, PHARMACY SALES ASSISTANT, lab, RT, psych nurse, psychiatric social worker supervisor, warehouse production worker, teacher, hazard mitigation officer, pillowcase turner)? Give summary @ -Patient admitted by EPS and I was notified that patient will be admitted to inpatient psych Was critical care preformed (if so, how long)? @ -No Undiagnosed new problem with uncertain prognosis? @ -No Drug Therapy requiring intensive monitoring for toxicity (Heparin, Nitro, Insulin, Cardizem)? @ -No Were any procedures done? @ -No Diagnosis/symptom? Acute, or Chronic, or Acute on Chronic? Uncomplicated (without systemic symptoms) or Complicated (systemic symptoms)? @ -Psychiatric evaluation Side effects of treatment? @ -No Exacerbation, Progression, or Severe Exacerbation? @ -No Poses a threat to life or bodily function? How? (Chest pain, [place], [place], pneumonia, PE, COPD, DKA, ARF, appy, cholecystitis, CVA, Diverticulitis, Homicidal, Suicidal, threat to staff... and all critical care pts) @ -yes - Lab Data Lab Results 11/22/24 11/22/24 Range/Units 09:25 12:51 Urine Opiates Screen Not Detected (NotDetected) Ur Oxycodone Screen Not Detected (NotDetected) Urine Methadone Screen Not Detected (NotDetected) Ur Barbiturates Screen Not Detected (NotDetected) U Tricyclic Antidepress Not Detected (NotDetected) Ur Phencyclidine Scrn Not Detected (NotDetected) Ur Amphetamines Screen Not Detected (NotDetected) U Methamphetamines Scrn Not Detected (NotDetected) U Benzodiazepines Scrn Not Detected (NotDetected) Urine Cocaine Screen Not Detected (NotDetected) U Marijuana (THC) Screen Not Detected (NotDetected) Influenza Type A (PCR) Not Detected (Not Detectd) Influenza Type B (PCR) Not Detected (Not Detectd) RSV (PCR) Not Detected (Not Detectd) SARS-CoV-2 (PCR) Not Detected (Not Detectd) Disposition Clinical Impression: Psychiatric complaint Disposition: TRANSFER TO PSYCH HOSP/UNIT
[2024-11-22 10:02] LABS: Amphetamine Screen,Urine Not Detected (NotDetected); Barbiturate Screen,Urine Not Detected (NotDetected); Benzodiazepines Screen,Urine Not Detected (NotDetected); Cocaine Screen,Urine Not Detected (NotDetected); Methadone Screen, Urine Not Detected (NotDetected); Opiate Screen,Urine Not Detected (NotDetected); Oxycodone Screen, Urine Not Detected (NotDetected); Phencyclidine Screen,Urine Not Detected (NotDetected); Tricyclic Antidepressant,Urine Not Detected (NotDetected); Urn Cannabinoid Scrn Not Detected (NotDetected)
[2024-11-22 13:41] LABS: Influenza A Not Detected (Not Detectd); Influenza B Not Detected (Not Detectd); RSV Not Detected (Not Detectd)
[2024-11-22] MEDS: ZIPRASIDONE 20 MG VIAL IM STA (14:16)
[2024-11-22 15:33] VITALS: BP 141/80; PULSE 118; RESP 16; TEMP 98.7
[2024-11-22] MEDS ORDERED: HALOPERIDOL LACTATE 5 MG/ML 1 ML VIAL IM PRN (16:07)
[2024-11-22] MEDS ORDERED: MAGNESIUM HYDROXIDE 2,400 MG/30 ML CUP PO PRN (16:07)
[2024-11-22] MEDS ORDERED: MAG HYDROX/AL HYDROX/SIMETH 355 ML BOTTLE PO PRN (16:07)
[2024-11-22] MEDS ORDERED: haloperidoL 5 MG TAB PO PRN (16:07)
[2024-11-22] MEDS ORDERED: LORazepam 1 MG TAB PO PRN (16:07)
[2024-11-22] MEDS ORDERED: IBUPROFEN 600 MG TAB PO PRN (16:07)
[2024-11-22] MEDS ORDERED: LORazepam 2 MG/ML INJ IM PRN (16:07)
[2024-11-22] MEDS ORDERED: ACETAMINOPHEN TAB 325 MG TAB PO PRN (16:07)
--- NOTE | 2024-11-22 20:54 | P.CONS ---
History of Present Illness - Reason for Consult Consult date: 11/22/24 - History of Present Illness This is a 54 year old male with medical history of shizoaffective disorder not currently on any medications on an outpatient basis. Patient was brought in by the police with reports of noncompliance to his home medications although none reported. Patient per medical record has longstanding history of psychiatric disorder and noncompliance with medications. Patient denies any active medical history and has no currently complaints. He does not elaborate when asked what brought him into the hospital. He is a patient of Dr. kenyetta Cobb. His EKG on admission reveals normal sinus rhythm with heart rate of 89. No specific ST or T wave changes. UDS is negative. Viral panel negative for influenza A/B, RSV, and Covid. He has been afebrile, heart rate 95, blood pressure 141/80. 98% on room air. Review of Systems Constitutional: Denied any fatigue denied any fever. Cardio vascular: denied any chest pain, palpitations Gastrointestinal: denied any nausea, vomiting, diarrhea Pulmonary: Denied any shortness of breath cough Neurologic denied any new focal deficits All inpatient medications were reviewed and appropriate changes in these medications as dictated in the interval history and assessment and plan. PHYSICAL EXAMINATION: GENERAL: The patient is alert and oriented x3, not in any acute distress. Well developed, well nourished. HEENT: Pupils are round and equally reacting to light. EOMI. No scleral icterus. No conjunctival pallor. Normocephalic, atraumatic. No pharyngeal erythema. No thyromegaly. CARDIOVASCULAR: S1 and S2 present. No murmurs, rubs, or gallops. PULMONARY: Chest is clear to auscultation, no wheezing or crackles. ABDOMEN: Soft, nontender, nondistended, normoactive bowel sounds. No palpable organomegaly. MUSCULOSKELETAL: No joint swelling or deformity. EXTREMITIES: No cyanosis, clubbing, or pedal edema. NEUROLOGICAL: Gross neurological examination did not reveal any focal deficits. SKIN: No rashes. Assessment and Plan Hx schizoaffective disorder with concern for noncompliance with outside medications Sinus tachycardia and hypertension can be from agitation will continue to monitor and make adjustments to medicaition if appropriate Thank you kindly for this consultation Plan Routine blood work pending Continue all medications per psychiatry Monitor heart rate and blood pressure. The impression and plan of care has been dictated by Mara Chaves Nurse Practitioner as directed. Dr. Hugo MD I have performed a history and physical examination and medical decision making of this patient, discussed the same with the dictator, and agree with the dictators assessment and plan as written, documented as a scribe. Based on total visit time, I have performed more than 50% of this visit. Past Medical History Past Medical History: No Reported History History of Any Multi-Drug Resistant Organisms: None Reported Past Surgical History: Tonsillectomy Past Psychological History: Schizoaffective Disorder Smoking Status: Never smoker Past Alcohol Use History: None Reported Past Drug Use History: None Reported Medications and Allergies Home Medications Medication Instructions Recorded Confirmed Type No Known Home Medications 09/08/22 11/22/24 History Allergies Allergy/AdvReac Type Severity Reaction Status Date / Time Penicillins Allergy Unknown Verified 11/22/24 09:19 Childhood Physical Exam Vitals: Vital Signs Temp Pulse Pulse Resp BP BP Pulse Ox 11/22/24 15:26 98.7 F 118 H 16 141/80 98 11/22/24 11:19 95 24 140/89 98 11/22/24 09:19 118 H 20 112/60 98 11/22/24 09:13 97.8 F 126 H 28 H 138/74 100 Intake and Output 11/22/24 11/22/24 11/22/24 06:59 14:59 22:59 Other: Weight 72.575 kg 85.502 kg Assessment and Plan Time with Patient: Less than 30
--- NOTE | 2024-11-23 11:02 | P.HP ---
Psychiatric H&P - . H&P Date: 11/23/24 History & Physical: Allergies Allergy/AdvReac Type Severity Reaction Status Date / Time Penicillins Allergy Unknown Verified 11/22/24 09:19 Childhood Vital Signs Temp 98.7 F 11/22/24 15:26 Pulse 118 H 11/22/24 15:26 Resp 16 11/22/24 15:26 BP 141/80 11/22/24 15:26 Pulse Ox 98 11/22/24 15:26 FiO2 Intake & Output 11/22/24 11/23/24 11/23/24 18:59 06:59 18:59 Weight 85.502 kg Laboratory Last Values Urine Opiates Screen Not Detected (NotDetected) 11/22/24 09:25 Ur Oxycodone Screen Not Detected (NotDetected) 11/22/24 09:25 Urine Methadone Screen Not Detected (NotDetected) 11/22/24 09:25 Ur Barbiturates Screen Not Detected (NotDetected) 11/22/24 09:25 U Tricyclic Antidepress Not Detected (NotDetected) 11/22/24 09:25 Ur Phencyclidine Scrn Not Detected (NotDetected) 11/22/24 09:25 Ur Amphetamines Screen Not Detected (NotDetected) 11/22/24 09:25 U Methamphetamines Scrn Not Detected (NotDetected) 11/22/24 09:25 U Benzodiazepines Scrn Not Detected (NotDetected) 11/22/24 09:25 Urine Cocaine Screen Not Detected (NotDetected) 11/22/24 09:25 U Marijuana (THC) Screen Not Detected (NotDetected) 11/22/24 09:25 Influenza Type A (PCR) Not Detected (Not Detectd) 11/22/24 12:51 Influenza Type B (PCR) Not Detected (Not Detectd) 11/22/24 12:51 RSV (PCR) Not Detected (Not Detectd) 11/22/24 12:51 SARS-CoV-2 (PCR) Not Detected (Not Detectd) 11/22/24 12:51 11/23/24 10:57 IDENTIFYING DATA: Patient is a 54-year-old male HPI: Patient presented to the hospital and was evaluated by EPS nurse and according to note "Patient was brought in by PD on court ordered pick up attendant related to violating AMRAI by not following up with [facility]. Patient assessed in ER14 from [id number]. Patient appears restless, anxious, and unable to sit still. Patient presents as disheveled/unkept and pacing around the room. Patient verbalizes that "that auditor internal is just out to get me". Patient has current treatment order that expires on 04/13/2025. [facility] filled out a pick up attendant order related to patient not attending outpatient treatment as outlined in his court order. Patient denies need for mental health treatment or medications. States he does not take any medications at home. Patient denies suicidal and homicidal ideations. Patient denies auditory or visual hallucinations. Patient appears paranoid, constantly watching the hallways. Spoke to patient father/guardian, Jone, he stated that patient was on a long acting injection given by Toby Dickerson, but he did not follow up outpatient with [facility]. father states that the patient does really well when he is compliant with his injection." Patient was seen earlier today on the phone, yelling at someone on the other line asking them about legal representation and wanting to jovana the hospital. He was adamant that he did not need to be in the hospital and does not need medications. Patient was seen pacing the hallways appeared frustrated disheveled appearance. He then went into the activities room and began playing cards with another patient. Adjunct Sociology Professor approached patient today for an interview, he responded to bid writer stating "I do not talk to doctors I do not need you guys". He proceeded to repeat the same statement and told bid writer to leave him alone and that he did not want to talk with him today. Able to gather further information or history. Patient is currently on a court order expiring on April 13, 2025. PAST PSYCHIATRIC HISTORY: Patient has a history of psychosis. Patient is apparently on a long-acting injection through [facility] however unsure what this is at this time. No other psychiatric admissions listed on this mental health unit. Able to gather further psychiatric history PMH: as per ER note ALLERGIES: as per EMR CHEMICAL DEPENDENCY HISTORY: Unable to gather FAMILY PSYCHIATRIC/SUBSTANCE USE HISTORY: Unable to gather SOCIAL HISTORY: Unable to gather MENTAL STATUS EXAM: General Appearance: Patient appears to be [tall, disheveled appearance, unshaven,] stated age is alert, not directable, uncooperative. Patient appears to have [poor] hygiene and grooming. Behavior: Patient is seated, uncooperative, dismissive Speech: Patient's speech is [fluent and nonpressured.] [place] demanding Mood/Affect: Unable to gather Suicidality/Homicidality: Unable to gather Perceptions: Unable to gather Though content/process: [place], demanding. Paranoid. Memory and concentration: Unable to assess Judgment and insight: [poor]/impulsive STRENGTHS/WEAKNESSES: strength is that patient is [resilient]. Weakness is that patient [has poor judgment/insight and is impulsive] INTELLECT: [average] IMPRESSIONS: Schizophrenia Noncompliance with medication regimen PLAN: -Patient is admitted under involuntary status to MHU for stabilization of psychiatric symptoms and safety. Patient is currently on an active treatment order which expires April 13, 2025. Patient has [not] signed adult voluntary form and has [not] signed medication consent and is placed in patient's chart. -Medications : Invega 3 mg nightly for psychosis/mood stabilization. If patient refuses p.o. Invega then please give 5 mg Zyprexa IM as per court order. -Ativan [and Haldol] PRN for agitation/aggression -Adjunct Sociology Professor attempted to inform patient of the risks, benefits and side effects of the medications ever patient was dismissive of bid writer did not participate in assessment or conversation with bid writer. Patient [did not] signed med consent form and was placed in chart. Patient was offered medication information and [declined it] -Internal Medicine consult to perform medical evaluation and physical. -NRT - not needed as patient does not smoke -SW on board for discharge planning. Encourage patient to participate in groups to work on coping skills. currently on an active treatment order which expires April 13, 2025 11/23/24 11:02
[2024-11-23] MEDS: PALIPERIDONE 3 MG TAB.ER.24 PO SCH (21:51)
[2024-11-23] MEDS: OLANZapine 10 MG VIAL IM PRN (21:53)
[2024-11-24 09:13] LABS: Appearance,Urine Clear (Clear); Bilirubin,Urine Negative (Negative); Blood,Urine Negative (Negative); Color,Urine Yellow; Glucose,Urine (UA) Negative (Negative); Ketones,Urine Negative (Negative); Leukocyte Esterase,Urine Negative (Negative); Nitrite,Urine Negative (Negative); Protein,Urine Negative (Negative); Specific Gravity,Urine 1.025 (1.001-1.035); Urobilinogen,Urine <2.0 mg/dL (<2.0)
--- NOTE | 2024-11-24 11:38 | P.PN ---
Progress Note - Text Progress Note Date: 11/24/24 Interval history: Patient was seen today for psychiatric follow-up, he was in his room looking at the window. He was approached by expert medical writer for interview today however patient told expert medical writer "I do not talk to doctors I do not need your help". He dismissed expert medical writer did not answer any questions. He continues to be appear to be disheveled in appearance, fairly demanding irritable. He refused Invega last night received Zyprexa IM from his court order MENTAL STATUS EXAM: General Appearance: Patient appears to be [tall, disheveled appearance, unshaven,] stated age is alert, not directable, uncooperative. Patient appears to have [poor] hygiene and grooming. Behavior: Patient is seated, uncooperative, dismissive Speech: Patient's speech is [fluent and nonpressured.] [place] demanding Mood/Affect: Unable to gather Suicidality/Homicidality: Unable to gather Perceptions: Unable to gather Though content/process: [place], demanding. Paranoid. Memory and concentration: Unable to assess Judgment and insight: [poor]/impulsive IMPRESSIONS: Schizophrenia Noncompliance with medication regimen PLAN: -Patient is admitted under involuntary status to MHU for stabilization of psychiatric symptoms and safety. Patient is currently on an active treatment order which expires April 13, 2025. -Medications : Invega 3 mg nightly for psychosis/mood stabilization. If patient refuses p.o. Invega then please give 5 mg Zyprexa IM as per court order. -Ativan [and Haldol] PRN for agitation/aggression -NRT - not needed as patient does not smoke -SW on board for discharge planning. Encourage patient to participate in groups to work on coping skills. currently on an active treatment order which expires April 13, 2025
[2024-11-24 21:40] LABS: Urine Alcohol Negative (Negative); Urine Barbiturate Negative (Negative); Urine Cocaine Negative (Negative); Urine Methadone Negative (Negative); Urine Opiates Negative (Negative); Urine Phencyclidine Negative (Negative)
--- NOTE | 2024-11-25 11:36 | P.PN ---
Progress Note - Text Progress Note Date: 11/25/24 Interval history: Patient was seen today for psychiatric follow-up. Patient was in his room tod kiarra, laying in bed. He continues to be refusing the Invega p.o. receiving Zyprexa IM. He was approached today by mortgage underwriter for evaluation once again, patient continues to be adamant that "I do not want to talk to you leave me alone". Patient did get fairly upset when mortgage underwriter attempted again to try and talk with him about medications and about his treatment, he dismissed mortgage underwriter once again told him that he does not want any medications until the room alone. Refused to answer any other questions. MENTAL STATUS EXAM: General Appearance: Patient appears to be tall, disheveled appearance, unshaven, stated age is alert, not directable, uncooperative. Patient appears to have poor hygiene and grooming. Behavior: Patient is seated, uncooperative, dismissive, irritable Speech: Patient's speech is fluent and nonpressured. [place] demanding Mood/Affect: Unable to gather Suicidality/Homicidality: Unable to gather Perceptions: Unable to gather Though content/process: [place], demanding. Paranoid. Dismissive Memory and concentration: Unable to assess Judgment and insight: Poor/impulsive IMPRESSIONS: Schizophrenia Noncompliance with medication regimen PLAN: -Patient is admitted under involuntary status to MHU for stabilization of psychiatric symptoms and safety. Patient is currently on an active treatment order which expires April 13, 2025. -Medications : Increase Invega 3 mg bid for psychosis/mood stabilization. If patient refuses p.o. Invega then please give 5 mg Zyprexa IM as per court order. -Ativan and Haldol PRN for agitation/aggression -NRT - not needed as patient does not smoke -SW on board for discharge planning. Encourage patient to participate in groups to work on coping skills. currently on an active treatment order which expires April 13, 2025
[2024-11-25] MEDS: PALIPERIDONE 3 MG TAB.ER.24 PO SCH (11:47)
[2024-11-25] MEDS: OLANZapine 10 MG VIAL IM PRN (11:50)
--- NOTE | 2024-11-26 11:04 | P.PN ---
Progress Note - Text Progress Note Date: 11/26/24 Interval history: Patient was seen today for psychiatric follow-up. Patient was talking on the phone today to someone. He continues to be disheveled in appearance. Continues to be refusing the medications, has been receiving IM Zyprexa. He did not want to speak to radio script writer today, continues to state "I do not talk to doctors go away". And then he proceeded to continue talking on the phone. Refused to answer any other questions. MENTAL STATUS EXAM: General Appearance: Patient appears to be tall, disheveled appearance, unshaven, stated age is alert, not directable, uncooperative. Patient appears to have poor hygiene and grooming. Behavior: Patient is seated, uncooperative, dismissive, irritable Speech: Patient's speech is fluent and nonpressured. [place] demanding Mood/Affect: Unable to gather Suicidality/Homicidality: Unable to gather Perceptions: Unable to gather Though content/process: [place], demanding. Paranoid. Dismissive Memory and concentration: Unable to assess Judgment and insight: Poor/impulsive IMPRESSIONS: Schizophrenia Noncompliance with medication regimen PLAN: -Patient is admitted under involuntary status to MHU for stabilization of psychiatric symptoms and safety. Patient is currently on an active treatment order which expires April 13, 2025. -Medications : Invega 3 mg bid for psychosis/mood stabilization. If patient refuses p.o. Invega then please give 5 mg Zyprexa IM as per court order. -Ativan and Haldol PRN for agitation/aggression -NRT - not needed as patient does not smoke -SW on board for discharge planning. Encourage patient to participate in groups to work on coping skills. currently on an active treatment order which expires April 13, 2025
--- NOTE | 2024-11-27 12:10 | P.PN ---
Progress Note - Text Progress Note Date: 11/27/24 Interval history: Patient was seen today for psychiatric follow-up. Patient was wandering [facility] earlier, requested director underwriter sales talk to staff members to get him his shoes without laces. He returned to his room, was seen by director underwriter sales in his room today. Patient was a bit more cooperative today with director underwriter sales, agreed to speak with him briefly. Answered some questions. Denies any depression or anxiety at this time. Continues to have very poor insight poor judgment. He claims that he is "adding this to the list" referring to not getting his shoes and his feet hurting and also referring to filing a lawsuit. He claims that he is trying to get his father's money and believes that his father is controlling him. He continues to state that he does not need any medications and wants to live to be "89 years old". Company Manager offered him different options for antipsychotic/mood stabilizing medications however patient refused every medication. Does not believe he has mental illness very poor insight poor judgment. Claims that he slept fairly last send has been eating well. Mainly keeping himself on the unit. Denies any auditory or visual hallucinations denies any suicidal homicidal ideations intent or plan. Has been receiving Zyprexa IM doses twice daily due to refusing p.o. Invega. MENTAL STATUS EXAM: General Appearance: Patient appears to be tall, improving appearance, unshaven, stated age is alert, oddly more cooperative today. Patient appears to have improving hygiene and grooming. Behavior: Patient is seated, uncooperative at times, improving, dismissive, bizarre and irrational Speech: Patient's speech is fluent and nonpressured. demanding Mood/Affect: Aims that his mood is "fine" affect is congruent and constricted Suicidality/Homicidality: Denies Perceptions: Denies Though content/process: [place], demanding. Grandiose at times, illogical Memory and concentration: Alert and oriented x 3, follows some directions, fair attention span Judgment and insight: Poor/impulsive IMPRESSIONS: Schizophrenia Noncompliance with medication regimen PLAN: -Patient is admitted under involuntary status to MHU for stabilization of psychiatric symptoms and safety. Patient is currently on an active treatment order which expires April 13, 2025. -Medications : Patient has been refusing p.o. Invega therefore will d/c it, will replace with Prolixin 3 mg bid for psychosis/mood stabilization. If patient refuses p.o. prolixin then please give 3 mg prolixin IM as per court order. -Ativan and Haldol PRN for agitation/aggression -NRT - not needed as patient does not smoke -SW on board for discharge planning. Encourage patient to participate in groups to work on coping skills. currently on an active treatment order which expires April 13, 2025
[2024-11-27] MEDS: OLANZapine 10 MG VIAL IM STA (13:36)
[2024-11-27] MEDS: flUPHENAZine 2.5 MG/ML (MDV) 10 ML VIAL IM PRN (20:09)
--- NOTE | 2024-11-28 12:07 | P.PN ---
Progress Note - Text Progress Note Date: 11/28/24 Interval history: Patient was seen today for psychiatric follow-up. Patient was wandering the h allways in the back hallway, agreeable to speak to staff writer. He continues to state that "I do not talk to doctors". However once staff writer attempted to speak with him further he started talking more. He asked "how do I get out of here" and staff writer proceeded to speak to him about medication compliance improving in his symptoms and discharge planning. Patient continues to have very superficial insight/limited. He continues to be refusing the pills and receiving the injections. Claims that he slept fairly last night not reporting any side effects or problems. Denies any depression or anxiety. He was fairly focused on discharge, minimizing his need for being in the hospital. Denying any suicidal homicidal ideations intent or plan denying any auditory or visual hallucinations. MENTAL STATUS EXAM: General Appearance: Patient appears to be tall, improving appearance, unshaven, stated age is alert, oddly more cooperative today. Patient appears to have improving hygiene and grooming. Behavior: Patient is seated, uncooperative at times, improving, bizarre improving Speech: Patient's speech is fluent and nonpressured. Less demanding Mood/Affect: Aims that his mood is "fine" affect is congruent and constricted, appears anxious Suicidality/Homicidality: Denies Perceptions: Denies Though content/process: [place], demanding. More cooperative today, more logical, superficial insight Memory and concentration: Alert and oriented x 3, follows some directions, fair attention span Judgment and insight: Chronically poor/superficial improving mildly IMPRESSIONS: Schizophrenia Noncompliance with medication regimen PLAN: -Patient is admitted under involuntary status to MHU for stabilization of psychiatric symptoms and safety. Patient is currently on an active treatment order which expires April 13, 2025. -Medications : Prolixin 3 mg bid for psychosis/mood stabilization, this can be increased gradually over the weekend if needed/tolerated. If patient refuses p.o. prolixin then please give 3 mg prolixin IM as per court order. -Ativan and Haldol PRN for agitation/aggression -NRT - not needed as patient does not smoke -SW on board for discharge planning. Encourage patient to participate in groups to work on coping skills. currently on an active treatment order which expires April 13, 2025. hopeful for discharge next week if patient is improving and transitioned onto [facility].
--- NOTE | 2024-11-29 11:01 | P.PN ---
Subjective Progress Note Date: 11/29/24 Principal diagnosis: schizophrenia Noncompliance with meds Interval history: Patient was seen today for psychiatric follow-up. He was laying in his room wide-awake and said, "I don't talk to doctors, none of them are nice". He continues to state that "I do not talk to doctors". he did talk to me for a while basically said I don't have any side effects currently I'm not taking that I don't think I need any. He continues to be refusing the pills and receiving the injections. Claims that he slept fairly last night not reporting any side effects or problems. Denies any depression or anxiety. He was fairly focused on discharge, minimizing his need for being in the hospital. Denying any suicidal homicidal ideations intent or plan denying any auditory or visual hallucinations. MENTAL STATUS EXAM: General Appearance: Patient appears to be tall, improving appearance, unshaven, he appears his stated age, he is alert, oddly more cooperative today. Patient was lying in bed with hospital gown on a little hard to tell his hygiene and grooming or gait he did not want to get up and come talk to me. Behavior:he was not aggressive and even had a bit of a sense of humor Speech: Patient's speech is fluent and nonpressured. [place] demanding Mood/Affect: he says that that his mood is "fine" affect is congruent and constricted, appears anxious Suicidality/Homicidality: Denies Perceptions: Denies Though content/process: superficial insight Memory and concentration: Alert and oriented x 3, follows some directions, fair attention span Judgment and insight: Chronically poor/superficial improving mildly IMPRESSIONS: Schizophrenia Noncompliance with medication regimen PLAN: no change -Patient is admitted under involuntary status to MHU for stabilization of psychiatric symptoms and safety. Patient is currently on an active treatment order which expires April 13, 2025. -Medications : Prolixin 3 mg bid for psychosis/mood stabilization, this can be increased gradually over the weekend if needed/tolerated. If patient refuses p.o. prolixin then please give 3 mg prolixin IM as per court order. -Ativan and Haldol PRN for agitation/aggression -NRT - not needed as patient does not smoke -SW on board for discharge planning. Encourage patient to participate in groups to work on coping skills. currently on an active treatment order which expires April 13, 2025. hopeful for discharge next week if patient is improving and transitioned onto [facility]. Objective - Vital Signs Vital signs: Vital Signs Temp 98.7 F 11/22/24 15:26 Pulse 118 H 11/22/24 15:26 Resp 16 11/22/24 15:26 BP 141/80 11/22/24 15:26 Pulse Ox 98 11/22/24 15:26 FiO2
--- NOTE | 2024-11-30 10:48 | P.PN ---
Subjective Progress Note Date: 11/30/24 Principal diagnosis: schizophrenia Noncompliance with meds Interval history: Patient was seen today for psychiatric follow-up. He was laying in his room wide-awake and instantlysaid, "I don't want to document you today either"as I entered the room. He continues to state that "I do not talk to doctors". 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 He continues to be refusing the pills and receiving the injections. Claims that he slept fairly last night not reporting any side effects or problems. Denies any depression or anxiety. He was fairly focused on discharge, minimizing his need for being in the hospital. He said, "I'm perfect". Denying any suicidal homicidal ideations intent or plan denying any auditory or visual hallucinations. MENTAL STATUS EXAM: hard to assess due to total lack of insight and total lack of compliance or cooperation. General Appearance: Patient appears to be tall, improving appearance, unshaven, he appears his stated age, he is alert, oddly more cooperative today. Patient was lying in bed with hospital gown on a little hard to tell his hygiene and grooming or gait he did not want to get up and come talk to me. Behavior:he was not aggressive and even had a bit of a sense of humor Speech: Patient's speech is fluent and nonpressured. Mood/Affect: he says that that his mood is "fine" affect is constricted, Suicidality/Homicidality: Denies Perceptions: Denies Though content/process: superficial insight Memory and concentration: Alert and oriented x 3, follows some directions, fair attention span Judgment and insight: Chronically poor/superficial improving mildly IMPRESSIONS: Schizophrenia Noncompliance with medication regimen PLAN: no change -Patient is admitted under involuntary status to MHU for stabilization of psychiatric symptoms and safety. Patient is currently on an active treatment order which expires April 13, 2025. -Medications : Prolixin 3 mg bid for psychosis/mood stabilization, this can be increased gradually over the weekend if needed/tolerated. If patient refuses p.o. prolixin then please give 3 mg prolixin IM as per court order. -Ativan and Haldol PRN for agitation/aggression -NRT - not needed as patient does not smoke -SW on board for discharge planning. Encourage patient to participate in groups to work on coping skills. currently on an active treatment order which expires April 13, 2025. hopeful for discharge next week if patient is improving and transitioned onto [facility]. Objective - Vital Signs Vital signs: Vital Signs Temp 98.7 F 11/22/24 15:26 Pulse 118 H 11/22/24 15:26 Resp 16 11/22/24 15:26 BP 141/80 11/22/24 15:26 Pulse Ox 98 11/22/24 15:26 FiO2
--- NOTE | 2024-12-01 15:06 | P.PN ---
Progress Note - Text Progress Note Date: 12/01/24 Interval history: Patient was seen today in cross-coverage for Dr. Hutson for psychiatric follow-u p. He was laying in his room and agreed to meet with the psychiatrist in the office. On entering the room he states "I'm a [employer] too." He claims he is doing well and "I feel good". He tends to feel anxious and is breathing loudly because he say she is anxious. He calms down after a few minutes. He refuses his oral Prolixin due to not liking to take pills and prefers to take the IM injections of Prolixin. He claims he slept well last night. He denies depressed mood, denies SI/HI, intent or plan. He hopes to live until 89! He denies AVH. Per chart, he has seemed withdrawn, mostly in his room, and but occasionally plays cards with peers, played spades. He tends to have paranoid beliefs about [facility], states they "trapped me from leaving", and says he doesn't like it there because he claims he was doing fine when he went off the medication that was bothering him. MENTAL STATUS EXAM: General Appearance: Patient appears to be stated age, tall, unshaven, alert, average hygiene and grooming. Behavior: Sits calmly in his chair, breaths loudly due to anxiety but calms down. He denies shortness of breath. Speech: Patient's speech is fluent and non-pressured. Mood/Affect: He says that that his mood is "good" affect is constricted. Suicidality/Homicidality: Denies Perceptions: He seems to have paranoid delusional thought content to me on assessment today. Though content/process: Somewhat concrete, simplistic; some anxious and paranoid thoughts about [facility] Memory and concentration: Alert and oriented x 3, poor recall of past medications Judgment and insight: Chronically poor/improving mildly IMPRESSIONS: Schizophrenia Noncompliance with medication regimen PLAN: -Patient is admitted under involuntary status to [facility] for stabilization of psychiatric symptoms and safety. Patient is currently on an active treatment order which expires April 13, 2025. -Medications: Transition from oral Prolixin to Prolixin decanoate: Start Prolixin decanoate 12.5 mg [id number] for psychosis with first dose to be given today. Monitor for side effects. Discontinue oral/IM Prolixin 3 mg bid for psychosis/mood stabilization. -Ativan and Haldol PRN for agitation/aggression -NRT - not needed as patient does not smoke -SW on board for discharge planning. Encourage patient to participate in groups to work on coping skills. -Patient is currently on an active treatment order which expires April 13, 2025. Plan is for discharge this week if patient is improving and transitioned onto ZAMUDIO.
[2024-12-01] MEDS: fluPHENAZine DECANOATE 25 MG/ML 5ML MDV IM SCH (17:28)
--- NOTE | 2024-12-02 11:51 | P.PN ---
Progress Note - Text Progress Note Date: 12/02/24 Interval history: Patient was seen today for psychiatric follow-up. Patient was laying in his bed today, agreeable to speak to content writer. Patient appears to be more friendlier with content writer and pleasant. Claims that he is still not taking the pills and is receiving the injections of the medication. Claims that he is tolerating the medication fairly well not reporting any side effects at this time. Claims that he has been trying to go to some groups participating. Denies any depression or anxiety. Not endorsing any paranoia and less focused on delusions today. Hygiene and grooming appear to be improving. He is agreeable to receive long- acting injection to help with compliance. Claims that he is sleeping fairly. Eating fairly. To have limited insight and judgment. Denying any suicidal homicidal ideations intent or plan denying any auditory or visual hallucinations. MENTAL STATUS EXAM: General Appearance: Patient appears to be tall, improving appearance, unshaven, stated age is alert, cooperative today. Patient appears to have improving hygiene and grooming. Behavior: Patient is seated, cooperative and more pleasant today Speech: Patient's speech is fluent and nonpressured. Less demanding Mood/Affect: Aims that his mood is "good" affect is congruent Suicidality/Homicidality: Denies Perceptions: Denies Though content/process: [place], demanding. More cooperative today, more logical, superficial insight Memory and concentration: Alert and oriented x 3, follows some directions, fair attention span Judgment and insight: Chronically poor/superficial improving mildly IMPRESSIONS: Schizophrenia Noncompliance with medication regimen PLAN: -Patient is admitted under involuntary status to [facility] for stabilization of psychiatric symptoms and safety. Patient is currently on an active treatment order which expires April 13, 2025. -Medications : P.o. Prolixin has been discontinued, patient was Prolixin D 12.5 mg IM once on 12/01, will give an additional dose of 12.5 mg IM tomorrow, next dose will be due in 2 weeks. -Ativan and Haldol PRN for agitation/aggression -NRT - not needed as patient does not smoke -SW on board for discharge planning. Encourage patient to participate in groups to work on coping skills. currently on an active treatment order which expires April 13, 2025. hopeful for discharge tomorrow back to his home with [facility] follow- up.
[2024-12-03] MEDS: fluPHENAZine DECANOATE 25 MG/ML 5ML MDV IM ONE (09:37)
--- NOTE | 2024-12-03 09:37 | P.DS ---
Providers Date of admission: 11/22/24 14:07 Expected date of discharge: 12/03/24 Attending physician: Jamie Hutson MD Consults: 11/22/24 16:07 Consult Physician Routine Consulting Provider: [facility] Reason/Comments: History and Physical, New Admission Do you want consulting provider notified?: Yes Primary care physician: Soumya oCbb - Discharge Diagnosis(es) (1) Schizophrenia Current Visit: Yes Status: Acute Priority: High (2) Non compliance w medication regimen Current Visit: Yes Status: Acute Priority: High Hospital Course: Admission HPI: Admission note was completed by short story writer "Patient is a 54-year-old male. Patient presented to the hospital and was evaluated by EPS nurse and according to note "Patient was brought in by PD on court ordered sheepskin pickler related to violating AMARI by not following up with [facility]. Patient assessed in ER14 from 1141- 1153. Patient appears restless, anxious, and unable to sit still. Patient presents as disheveled/unkept and pacing around the room. Patient verbalizes that "that clay structure builder and servicer is just out to get me". Patient has current treatment order that expires on 04/13/2025. [facility] filled out a sheepskin pickler order related to patient not attending outpatient treatment as outlined in his court order. Patient denies need for mental health treatment or medications. States he does not take any medications at home. Patient denies suicidal and homicidal ideations. Patient denies auditory or visual hallucinations. Patient appears paranoid, constantly watching the hallways. Spoke to patient father/guardian, Jone, he stated that patient was on a long acting injection given by Toby Dickerson, but he did not follow up outpatient with [facility]. father states that the patient does really well when he is compliant with his injection." Patient was seen earlier today on the phone, yelling at someone on the other line asking them about legal representation and wanting to jovana the hospital. He was adamant that he did not need to be in the hospital and does not need medications. Patient was seen pacing the hallways appeared frustrated disheveled appearance. He then went into the activities room and began playing cards with another patient. Aircraft Accessories Mechanic approached patient today for an interview, he responded to short story writer stating "I do not talk to doctors I do not need you guys". He proceeded to repeat the same st atement and told short story writer to leave him alone and that he did not want to talk with him today. Able to gather further information or history. Patient is currently on a court order expiring on April 13, 2025." Hospital course: Upon admission to the unit patient was admitted involuntarily on an active court order for mental health treatment. Patient was initially bizarre, delusional and impulsive however with time and treatment patient got along well with other patients on the unit and followed unit protocol. Patient was not compliant with po medications and due to being on a court order was given IM medications inctead, and denied any side effects throughout hospital course. Patient was placed on Prolixin, only given short acting injections due to him not wanting PO meds. Patient was then transitioned onto Prolixin D, given 1 dose of 12.5 mg IM on 12/01, second dose of 12.5 mg IM will be given on 12/03, next dose of 25 mg IM will be due on 12/17Q 2 weeks. Patient spoke of his stressors however did not participate much in group/activity therapy and mainly kept to themselves during hospitalization. Patient was also seen by medical team for history and physical exam. Throughout the course of the hospitalization patient gradually improved with regards to mood, anxiety, psychosis/delusions, sleep and returned back to their baseline level of functioning. On the day of discharge patient denied any suicidal or homicidal ideations intent or plan denied any auditory or visual hallucinations. Patient endorsed wanting to live for his health and future. The patient denied any access to guns or weapons. Patient denied any paranoia and did not endorse any delusions. Patient does not have a significant history of substance abuse and was counseled on abstaining from all substances including alcohol and marijuana. Patient was also counseled on the medications and need for regular compliance and was encouraged to follow-up with their outpatient appointment for mental health and also for primary care. Prior to discharge a family meeting will be arranged by adoption social worker to answer any questions and ensure safety upon discharge incuding making sure that guns/weapons are either r emoved from the home or locked away. Patient will be followed closely by [facility]. Mental status exam: General Appearance: Patient appears to be tall, thin, stated age is alert, pleasant, and cooperative. Patient is in no acute distress and has improved hygiene and grooming Behavior: Patient is calmly seated without any agitated behavior. Speech: Patient's speech is fluent and nonpressured. Mood/Affect: Patient reports their mood is "good", affect is congruent and euthymic. Suicidality/Homicidality: Patient denies having any suicidal or homicidal ideation intent or plan. Perceptions: Patient denies any auditory or visual hallucinations. Though content/process: There is no evidence of any delusional thought content and thought process is linear and goal-directed. Memory and concentration: AOX3, grossly intact for the purposes of this session. Can spell "WORLD" backwards correctly. Judgment and insight: Chronically poor, however has improved with guarded prognosis Impression: Schizophrenia Noncompliance with medication regimen Plan: -Continue with discharge today as patient has improved and stabilized psychiatrically and is not currently an imminent threat to themself and/or others. Patient will remain at chronically elevated risk for harm to self and/or others due to their impulsivity and history of noncompliance. -Continue medications: Prolixin D 25 mg IM, every 2 weeks next dose due on 12/17 at [facility] -Patient was counseled on the need for medication compliance and appropriate follow-up at mental health and also primary care for medical issues. Patient verbalized understanding and agreed. -Social work to help coordinate patients discharge today. also to ensure safe home environment that guns/weapons are either removed from the home or locked away. Social work also to arrange for patients follow up appointments with [facility] for psychiatric care along with follow up with primary care provider. -Patient counseled on abstaining from recreational drugs and marijuana and alcohol. Was informed/educated on the adverse effects on their physical and mental health. Patient verbally agreed and understood. -Patient was instructed to return to the hospital or seek immediate medical care if their psychiatric or medical symptoms do worsen or reoccur. Allergies Allergy/AdvReac Type Severity Reaction Status Date / Time Penicillins Allergy Unknown Verified 11/22/24 09:19 Childhood Laboratory Results Urine Color Yellow 11/24/24 08:55 Urine Appearance Clear (Clear) 11/24/24 08:55 Urine pH 6.0 (5.0-8.0) 11/24/24 08:55 Ur Specific [place] 1.025 (1.001-1.035) 11/24/24 08:55 Urine Protein Negative (Negative) 11/24/24 08:55 Urine Glucose (UA) Negative (Negative) 11/24/24 08:55 Urine Ketones Negative (Negative) 11/24/24 08:55 Urine Blood Negative (Negative) 11/24/24 08:55 Urine Nitrite Negative (Negative) 11/24/24 08:55 Urine Bilirubin Negative (Negative) 11/24/24 08:55 Urine Urobilinogen <2.0 mg/dL (<2.0) 11/24/24 08:55 Ur Leukocyte Esterase Negative (Negative) 11/24/24 08:55 Urine Opiates Screen Negative (Negative) 11/24/24 08:55 Ur Oxycodone Screen Not Detected (NotDetected) 11/22/24 09:25 Urine Methadone Screen Negative (Negative) 11/24/24 08:55 Ur Propoxyphene Screen Negative (Negative) 11/24/24 08:55 Ur Barbiturates Screen Not Detected (NotDetected) 11/22/24 09:25 Urine Barbiturates Negative (Negative) 11/24/24 08:55 U Tricyclic Antidepress Not Detected (NotDetected) 11/22/24 09:25 Ur Phencyclidine Scrn Negative (Negative) 11/24/24 08:55 Ur Amphetamine Screen Negative (Negative) 11/24/24 08:55 Ur Amphetamines Screen Not Detected (NotDetected) 11/22/24 09:25 U Methamphetamines Scrn Not Detected (NotDetected) 11/22/24 09:25 U Benzodiazepines Scrn Negative (Negative) 11/24/24 08:55 Urine Cocaine Screen Negative (Negative) 11/24/24 08:55 U Cannabinoids Screen Negative (Negative) 11/24/24 08:55 U Marijuana (THC) Screen Not Detected (NotDetected) 11/22/24 09:25 Urine Alcohol Negative (Negative) 11/24/24 08:55 U Creatinine Drug Scrn 205.0 mg/dL (>=20.0) 11/24/24 08:55 Influenza Type A (PCR) Not Detected (Not Detectd) 11/22/24 12:51 Influenza Type B (PCR) Not Detected (Not Detectd) 11/22/24 12:51 RSV (PCR) Not Detected (Not Detectd) 11/22/24 12:51 SARS-CoV-2 (PCR) Not Detected (Not Detectd) 11/22/24 12:51 Vital Signs Temp 98.7 F 11/22/24 15:26 Pulse 118 H 11/22/24 15:26 Resp 16 11/22/24 15:26 BP 141/80 11/22/24 15:26 Pulse Ox 98 11/22/24 15:26 FiO2 Patient Condition at Discharge: Stable Plan - Discharge Summary New Discharge Prescriptions: New fluPHENAZine decanoate [Prolixin Decanoate] 25 mg IM Q14D #1 each Discharge Medication List fluPHENAZine decanoate [Prolixin Decanoate] 25 mg IM Q14D #1 each 12/03/24 [Rx] Follow up Appointment(s)/Referral(s): Soumya Cobb MD [Primary Care Provider] - 1-2 days Activity/Diet/Wound Care/Special Instructions: [facility] Discharge Info Avoid the use of street drugs and alcohol. Take all medications as prescribed. When you are in need of refills on your medications, please contact your outp atient medical provider and/or outpatient psychiatrist. Please go to your scheduled outpatient appointments for aftercare treatment. If symptoms return or become worse, call the crisis line at or and/or visit the nearest emergency room for assistance. National Suicide and Crisis Lifeline - call or text 202 Discharge Disposition: HOME SELF-CARE
== END 2024-12-03 13:17 | disposition home or self-care (01) | DRG 885 ==
LOC: EC 09:11 → 3MHU 14:07
PROVIDERS: ADMIT Psychiatry & Neurology Psychiatry; ATTEND Psychiatry & Neurology Psychiatry
DX: F20.9 Schizophrenia, unspecified (principal); Z91.148 Patient's other noncompliance with medication regimen for other reason; F41.9 Anxiety disorder, unspecified; I10 Essential (primary) hypertension; Z91.199 Patient's noncompliance with other medical treatment and regimen due to unspecified reason; Z56.0 Unemployment, unspecified; Z88.0 Allergy status to penicillin
CPT/HCPCS: 80306; 81003; 82075; 87636; 96372; 99285

== ENCOUNTER 2025-02-16 12:28 | Emergency (ER) | payer MEDICARE, OTHER ==
[2025-02-16 13:31] LABS: Basophils # (A) 0.07 10*3/uL (0.00-0.10); Eosinophils # (A) 0.08 10*3/uL (0.04-0.35); Eosinophils % (A) 1.2 %; HCT 41.1 % (39.6-50.0); HGB 14.5 g/dL (13.0-17.0); Lymphocytes # (A) 1.24 10*3/uL (0.90-5.00); Lymphocytes % (A) 18.5 %; MCH 30.3 pg (27.0-32.0); MCHC 35.3 g/dL (32.0-37.0); MCV 85.8 fL (80.0-97.0); Mean Platelet Volume 10.1 fL (9.5-12.2); Monocytes # (A) 0.46 10*3/uL (0.20-1.00); Monocytes % (A) 6.9 %; Neutrophils # (A) 4.83 10*3/uL (1.80-7.70); Neutrophils % (A) 72.1 %; Platelet Count 250 10*3/uL (140-440); RBC 4.79 10*6/uL (4.40-5.60); RDW 12.7 % (11.5-14.5)
[2025-02-16 13:48] LABS: AST 23 U/L (17-59); African American GFR (CKD) >90 (>60 ml/min/1.73 sqM); Albumin 4.1 g/dL (3.5-5.0); Alkaline Phosphatase 87 U/L (38-126); Anion Gap 15 mmol/L; Blood Urea Nitrogen 11 mg/dL (9-20); Calcium 9.1 mg/dL (8.4-10.2); Carbon Dioxide 18 mmol/L (22-30); Chloride 99 mmol/L (98-107); Glucose 164 mg/dL (74-99); Non-African American GFR(CKD) >90 (>60 ml/min/1.73 sqM); Potassium 3.5 mmol/L (3.5-5.1); Sodium 132 mmol/L (137-145); Total Bilirubin 0.6 mg/dL (0.2-1.3); Total Protein 6.8 g/dL (6.3-8.2)
[2025-02-16 13:49] LABS: Partial Thromboplastin Time 22.1 sec (22.0-30.0); Prothrombin Time 10.7 sec (10.0-12.5)
[2025-02-16 13:57] LABS: ALT 27 U/L (4-49)
--- NOTE | 2025-02-16 14:17 | XR ---
EXAMINATION TYPE: XR chest 2V DATE OF EXAM: 02/16/2025 CLINICAL INDICATION: Male, 55 years old with history of difficulty breathing, TECHNIQUE: Frontal and lateral views of the chest are obtained. COMPARISON: None FINDINGS: There is no focal air space opacity, pleural effusion, or pneumothorax seen. The cardiac silhouette size is within normal limits. Dextroconvex scoliosis is seen. Embolization coils in the up per to mid abdomen are partially imaged. IMPRESSION: No acute pulmonary process. [facility], , 02/16/2025 2:14 PM
[2025-02-16] MEDS: LORazepam 1 MG TAB PO STA (15:01)
[2025-02-16 15:18] VITALS: TEMP 97.6
[2025-02-16 16:11] LABS: Influenza A Not Detected (Not Detectd); Influenza B Not Detected (Not Detectd); RSV Not Detected (Not Detectd)
--- NOTE | 2025-02-16 16:43 | ED ---
General Adult HPI - General Chief complaint: Shortness of Breath Stated complaint: SOB Time Seen by Provider: 02/16/25 12:45 Source: patient, RN notes reviewed, old records reviewed Mode of arrival: ambulatory Limitations: no limitations - History of Present Illness Initial comments: Patient is a 55-year-old male who presents emergency department complaining of dyspnea. He appears anxious. Has a history of psychiatric illness and takes monthly injections. States that shortness of breath has been ongoing for multiple days denies any fevers, chills, cough, chest pain, abdominal pain with nausea, vomiting. Denies any other acute complaints at this time. Presents for further evaluation at this time. States that shortness of breath is always there whether he is sitting or standing or moving around. States that is possible he is anxious but denies any obvious anxiety right now. Denies suicidal or homicidal ideations, attempts, plans. States he is compliant with medications. Presents for further evaluation at this time. - Related Data Previous Rx's Medication Instructions Recorded fluPHENAZine decanoate [Prolixin 25 mg IM Q14D #1 each 12/03/24 Decanoate] LORazepam [Ativan] 1 mg PO DAILY PRN 3 Days #3 tab 02/16/25 Allergies Allergy/AdvReac Type Severity Reaction Status Date / Time Penicillins Allergy Unknown Verified 02/16/25 12:53 Childhood Review of Systems ROS Statement: Those systems with pertinent positive or pertinent negative responses have been documented in the HPI. Review of Systems: CONST: Endorses anxiety EYES: Denies blurry vision ENT: Denies nasal congestion C/V: Denies Chest pain RESP: Endorses dyspnea GI: Denies abdominal pain : Denies dysuria SKIN: Denies rash. MSK: Denies joint pain. NEURO: Denies headache ROS Other: All systems not noted in ROS Statement are negative. Past Medical History Past Medical History: No Reported History History of Any Multi-Drug Resistant Organisms: None Reported Past Surgical History: Tonsillectomy Past Psychological History: Schizoaffective Disorder Smoking Status: Never smoker Past Alcohol Use History: None Reported Past Drug Use History: None Reported General Exam - General Exam Comments Initial Comments: General: Appears anxious HEAD: Normal with no signs of head trauma. EYES: PERRLA, EOMI, conjunctiva normal, no discharge. ENT: Hearing grossly intact, normal oropharynx. RESPIRATORY: Clear breath sounds bilaterally. No wheezes, rales, or rhonchi. No hypoxia C/V: Regular rhythm with mild tachycardia. S1 and S2 auscultated, no edema, peripheral pulses 2+ and intact throughout ABD: Abd is soft, nontender, nondistended EXT: Normal range of motion, no obvious deformity SKIN: No rashes or lesions observed on exposed skin. NEURO: Alert and oriented x 4. Limitations: no limitations Course Vital Signs 02/16/25 02/16/25 02/16/25 12:50 15:07 15:16 Temperature 97.6 F 97.8 F 97.6 F Pulse Rate 113 H 99 92 Respiratory 22 17 20 Rate Blood Pressure 125/75 129/80 136/67 O2 Sat by Pulse 97 97 98 Oximetry 02/16/25 02/16/25 16:42 16:45 Temperature 97.6 F Pulse Rate 109 H Respiratory 20 Rate Blood Pressure 132/76 O2 Sat by Pulse 98 Oximetry Medical Decision Making - Medical Decision Making Was pt. sent in by a medical professional or institution (, PA, ACCOUNTING ADMINISTRATOR, urgent care, hospital, or group home...) When possible be specific @ -No Did you speak to anyone other than the patient for history (EMS, parent, family, police, friend...)? What history was obtained from this source @ -No Did you review nursing and triage notes (agree or disagree)? Why? @ -I reviewed and agree with nursing and triage notes Were old charts reviewed (outside hosp., previous admission, EMS record, old EKG, old radiological studies, urgent care reports/EKG's, group home records)? Report findings @ -No old charts were reviewed Differential Diagnosis (chest pain, altered mental status, abdominal pain women, abdominal pain men, vaginal bleeding, weakness, fever, dyspnea, syncope, headache, dizziness, GI bleed, back pain, seizure, CVA, palpatations, mental health, musculoskeletal)? @ -Anxiety, viral syndrome, ACS, PE. This list is not inclusive. EKG interpreted by me (3pts min.). @ -As above X-rays interpreted by me (1pt min.). @ -Chest x-ray shows no obvious acute cardiopulmonary process. CT interpreted by me (1pt min.). @ -None done U/S interpreted by me (1pt. min.). @ -None done What testing was considered but not performed or refused? (CT, X-rays, U/S, labs)? Why? @ -None What meds were considered but not given or refused? Why? @ -None Did you discuss the management of the patient with other professionals (professionals i.e. , PA, ACCOUNTING ADMINISTRATOR, lab, RT, psych nurse, social science research assistant, professor of industrial technology, teacher, maritime officer, disability case manager)? Give summary @ -No Was smoking cessation discussed for >3mins.? @ -No Was critical care preformed (if so, how long)? @ -No Were there social determinants of health that impacted care today? How? (Homelessness, low income, unemployed, alcoholism, drug addiction, transportation, low edu. Level, literacy, decrease access to med. care, nursing home, r ehab)? @ -No Was there de-escalation of care discussed even if they declined (Discuss DNR or withdrawal of care, Hospice)? DNR status @ -No What co-morbidities impacted this encounter? (DM, HTN, Smoking, COPD, CAD, Cancer, CVA, ARF, Chemo, Hep., AIDS, mental health diagnosis, sleep apnea, morbid obesity)? @ -None Was patient admitted / discharged? Hospital course, mention meds given and route, prescriptions, significant lab abnormalities, going to OR and other pertinent info. @ -Patient presents with what he describes as constant dyspnea for the last 2 days. Appears extremely anxious. Will obtain cardiopulmonary screening workup as well is provide the patient with a dose of Ativan. No cardiac history. He was in agreement this plan. Vital signs within acceptable limits. Labs are all within acceptable limits including undetectable D-dimer, undetectable troponin, undetectable BNP. Viral swabs negative. Chest x-ray unremarkable. EKG unremarkable. On reevaluation, patient's symptoms have resolved. He is feeling much improved. Patient be discharged home at this time. He was in agreement this plan. He will be given a short course of Ativan for home as needed for anxiety. He will follow-up with his PCP. I instructed the patient to follow up with their PCP in the next 1-3 days. I explained that the patient should return to the emergency department if they experience any worsening symptoms. Strict return precautions were discussed with the patient. The patient expressed understanding of these instructions. I answered all questions that the patient had. The patient was discharged home in good condition with their prescriptions and follow up information. Undiagnosed new problem with uncertain prognosis? @ -No Drug Therapy requiring intensive monitoring for toxicity (Heparin, Nitro, Insulin, Cardizem)? @ -No Were any procedures done? @ -No Diagnosis/symptom? @ -Anxiety Acute, or Chronic, or Acute on Chronic? @ -Acute Uncomplicated (without systemic symptoms) or Complicated (systemic symptoms)? @ -Uncomplicated Side effects of treatment? @ -No Exacerbation, Progression, or Severe Exacerbation? @ -No Poses a threat to life or bodily function? How? (Chest pain, [place], CA, pneumonia, PE, COPD, DKA, ARF, appy, cholecystitis, CVA, Diverticulitis, Homicidal, Suicidal, threat to staff... and all critical care pts) @ -Unlikely at this time - Lab Data Result diagrams: 02/16/25 13:24 02/16/25 13:24 Lab Results 02/16/25 02/16/25 02/16/25 Range/Units 13:24 13:24 13:24 WBC 6.70 (4.50-10.00) 10*3/uL RBC 4.79 (4.40-5.60) 10*6/uL Hgb 14.5 (13.0-17.0) g/dL Hct 41.1 (39.6-50.0) % MCV 85.8 (80.0-97.0) fL MCH 30.3 (27.0-32.0) pg MCHC 35.3 (32.0-37.0) g/dL Plt Count 250 (140-440) 10*3/uL MPV 10.1 (9.5-12.2) fL Immature Gran % (Auto) 0.3 % Neutrophils % 72.1 % Lymphocytes % 18.5 % Monocytes % 6.9 % Eosinophils % 1.2 % Basophils % 1.0 % Immature Gran # 0.02 (0.00-0.04) 10*3/uL Neutrophils # 4.83 (1.80-7.70) 10*3/uL Lymphocytes # 1.24 (0.90-5.00) 10*3/uL Monocytes # 0.46 (0.20-1.00) 10*3/uL Eosinophils # 0.08 (0.04-0.35) 10*3/uL Basophils # 0.07 (0.00-0.10) 10*3/uL PT 10.7 (10.0-12.5) sec INR 1.0 (<1.2) APTT 22.1 (22.0-30.0) sec D-Dimer (<0.60) mg/L FEU Sodium 132 L (137-145) mmol/L Potassium 3.5 (3.5-5.1) mmol/L Chloride 99 (98-107) mmol/L Carbon Dioxide 18 L (22-30) mmol/L Anion Gap 15 mmol/L BUN 11 (9-20) mg/dL Creatinine 0.72 (0.66-1.25) mg/dL Est GFR (CKD-EPI)AfAm >90 (>60 ml/min/1.73 sqM) Est GFR (CKD-EPI)NonAf >90 (>60 ml/min/1.73 sqM) Glucose 164 H (74-99) mg/dL Calcium 9.1 (8.4-10.2) mg/dL Total Bilirubin 0.6 (0.2-1.3) mg/dL AST 23 (17-59) U/L ALT 27 (4-49) U/L Alkaline Phosphatase 87 (38-126) U/L Troponin I (0.000-0.034) ng/mL NT-Pro-B Natriuret Pep pg/mL Total Protein 6.8 (6.3-8.2) g/dL Albumin 4.1 (3.5-5.0) g/dL Influenza Type A (PCR) (Not Detectd) Influenza Type B (PCR) (Not Detectd) RSV (PCR) (Not Detectd) SARS-CoV-2 (PCR) (Not Detectd) 02/16/25 02/16/25 02/16/25 Range/Units 13:24 13:24 13:24 WBC (4.50-10.00) 10*3/uL RBC (4.40-5.60) 10*6/uL Hgb (13.0-17.0) g/dL Hct (39.6-50.0) % MCV (80.0-97.0) fL MCH (27.0-32.0) pg MCHC (32.0-37.0) g/dL Plt Count (140-440) 10*3/uL MPV (9.5-12.2) fL Immature Gran % (Auto) % Neutrophils % % Lymphocytes % % Monocytes % % Eosinophils % % Basophils % % Immature Gran # (0.00-0.04) 10*3/uL Neutrophils # (1.80-7.70) 10*3/uL Lymphocytes # (0.90-5.00) 10*3/uL Monocytes # (0.20-1.00) 10*3/uL Eosinophils # (0.04-0.35) 10*3/uL Basophils # (0.00-0.10) 10*3/uL PT (10.0-12.5) sec INR (<1.2) APTT (22.0-30.0) sec D-Dimer <0.17 (<0.60) mg/L FEU Sodium (137-145) mmol/L Potassium (3.5-5.1) mmol/L Chloride (98-107) mmol/L Carbon Dioxide (22-30) mmol/L Anion Gap mmol/L BUN (9-20) mg/dL Creatinine (0.66-1.25) mg/dL Est GFR (CKD-EPI)AfAm (>60 ml/min/1.73 sqM) Est GFR (CKD-EPI)NonAf (>60 ml/min/1.73 sqM) Glucose (74-99) mg/dL Calcium (8.4-10.2) mg/dL Total Bilirubin (0.2-1.3) mg/dL AST (17-59) U/L ALT (4-49) U/L Alkaline Phosphatase (38-126) U/L Troponin I <0.012 (0.000-0.034) ng/mL NT-Pro-B Natriuret Pep <20 pg/mL Total Protein (6.3-8.2) g/dL Albumin (3.5-5.0) g/dL Influenza Type A (PCR) (Not Detectd) Influenza Type B (PCR) (Not Detectd) RSV (PCR) (Not Detectd) SARS-CoV-2 (PCR) (Not Detectd) 02/16/25 Range/Units 15:02 WBC (4.50-10.00) 10*3/uL RBC (4.40-5.60) 10*6/uL Hgb (13.0-17.0) g/dL Hct (39.6-50.0) % MCV (80.0-97.0) fL MCH (27.0-32.0) pg MCHC (32.0-37.0) g/dL Plt Count (140-440) 10*3/uL MPV (9.5-12.2) fL Immature Gran % (Auto) % Neutrophils % % Lymphocytes % % Monocytes % % Eosinophils % % Basophils % % Immature Gran # (0.00-0.04) 10*3/uL Neutrophils # (1.80-7.70) 10*3/uL Lymphocytes # (0.90-5.00) 10*3/uL Monocytes # (0.20-1.00) 10*3/uL Eosinophils # (0.04-0.35) 10*3/uL Basophils # (0.00-0.10) 10*3/uL PT (10.0-12.5) sec INR (<1.2) APTT (22.0-30.0) sec D-Dimer (<0.60) mg/L FEU Sodium (137-145) mmol/L Potassium (3.5-5.1) mmol/L Chloride (98-107) mmol/L Carbon Dioxide (22-30) mmol/L Anion Gap mmol/L BUN (9-20) mg/dL Creatinine (0.66-1.25) mg/dL Est GFR (CKD-EPI)AfAm (>60 ml/min/1.73 sqM) Est GFR (CKD-EPI)NonAf (>60 ml/min/1.73 sqM) Glucose (74-99) mg/dL Calcium (8.4-10.2) mg/dL Total Bilirubin (0.2-1.3) mg/dL AST (17-59) U/L ALT (4-49) U/L Alkaline Phosphatase (38-126) U/L Troponin I (0.000-0.034) ng/mL NT-Pro-B Natriuret Pep pg/mL Total Protein (6.3-8.2) g/dL Albumin (3.5-5.0) g/dL Influenza Type A (PCR) Not Detected (Not Detectd) Influenza Type B (PCR) Not Detected (Not Detectd) RSV (PCR) Not Detected (Not Detectd) SARS-CoV-2 (PCR) Not Detected (Not Detectd) - EKG Data -: EKG Interpreted by Me EKG Comments: 12-lead Electrocardiogram Interpretation Note EKG was reviewed and interpreted by myself. 12-lead ECG performed at 1314 is interpreted by me as revealing sinus tachycardia at a rate of 101 beats per minute. [place] is normal. [place] interval is 157 ms, QRS duration is 86 ms, QTc is 405 ms.. There were no ST or T wave abnormalities to suggest myocardial i schemia or injury. R wave progression across the precordium was satisfactory. By my interpretation this EKG is non-diagnostic for acute ischemia. Disposition Clinical Impression: Anxiety Disposition: HOME SELF-CARE Condition: Good Instructions (If sedation given, give patient instructions): Anxiety (ED) Prescriptions: LORazepam [Ativan] 1 mg PO DAILY PRN 3 Days #3 tab PRN Reason: Anxiety Is patient prescribed a controlled substance at d/c from ED?: Yes When asked, does pt state using other controlled substances?: No If prescribed controlled substance>3 days was MAPS reviewed?: Prescribed <3 Days Referrals: Soumya Cobb MD [Primary Care Provider] - 1-2 days Time of Disposition: 16:40
[2025-02-16 16:44] VITALS: BP 132/76; PULSE 109; RESP 20
== END 2025-02-16 16:54 | disposition home or self-care (01) ==
LOC: EC 12:28
DX: F41.9 Anxiety disorder, unspecified (principal); Z88.0 Allergy status to penicillin
CPT/HCPCS: 36415; 71046; 80053; 83880; 84484; 85025; 85379; 85610; 85730; 87636; 93005; 99285